=== PATIENT | female | born 1950 | race African-American/Black ===

== ENCOUNTER 2018-06-01 06:40 | Inpatient (IN) | payer OTHER, MEDICAID ==
[~2018-06-01] VITALS: Ht 152.4 cm; Wt 69.0 kg
[~2018-06-01 06:40] MED LIST: AMIT25TA9 PO; ASPI-1159 PO; FERR-63 PO; GEMF600T4 PO; HYDR25TA PO; LOSA50TA3 PO; METF500T6 PO; OMEP20CA10 PO; TRAM50TA3 PO
[2018-06-01 07:31] LABS: BASOPHILS % 0.5 % (0.0-2.0); HEMOGLOBIN. 13.8 g/dL (12.0-16.0); MEAN CORPUSCULAR HEMOGLOBIN 29.7 pg (28.0-32.0); MEAN CORPUSCULAR VOLUME 88.6 fL (81.0-99.0); MEAN PLATELET VOLUME 10.4 fl (7.4-10.4); MONOCYTES % 7.8 % (2.0-8.0); NEUTROPHILS % 45.7 % (40.0-76.0); PLATELET 213 x1000/uL (130-400); RED BLOOD CELL COUNT 4.63 mill/uL (4.2-5.4); RED CELL DISTRIBUTION WIDTH 14.4 % (11.6-14.6)
[2018-06-01 07:37] LABS: CHLORIDE 101 mEq/L (98-107)
[2018-06-01] MEDS ORDERED: FUROSEMIDE 100MG/10ML VIAL IVP NR (07:45)
[2018-06-01] MEDS ORDERED: ASPIRIN 81MG TABLET PO NR (07:45)
[2018-06-01] MEDS ORDERED: NITROGLYCERIN OINT 1GM/INCH UDPKT TD NR (07:45)
[2018-06-01] MEDS ORDERED: HYDROCODONE/ACETAMINOPHEN 5/325MG TABLET PO PRN (09:45)
[2018-06-01] MEDS ORDERED: ONDANSETRON HCL 4MG/2ML INJ IV PRN (09:45)
[2018-06-01] MEDS ORDERED: HYDROCODONE/ACETAMINOPHEN 10/325MG TABLET PO PRN (09:45)
[2018-06-01] MEDS ORDERED: ACETAMINOPHEN 650MG SUPP PR PRN (09:45)
[2018-06-01] MEDS ORDERED: ACETAMINOPHEN 650MG/20.3ML UDC GT PRN (09:45)
[2018-06-01] MEDS ORDERED: ACETAMINOPHEN 325MG TABLET PO PRN (09:45)
[2018-06-01] MEDS ORDERED: IOHEXOL-350 100 ML BOTTLE ONE (10:03)
[2018-06-01] MEDS ORDERED: POTASSIUM CHLORIDE 20MEQ TABLET SR PO NR (10:30)
[2018-06-01 11:00] VITALS: BP 129/77
[2018-06-01 11:35] LABS: PROTHROMBIN TIME 10.1 sec (9.1-11.1)
[2018-06-01 12:39] VITALS: BP 129/77
[2018-06-01] MEDS ORDERED: DEXTROSE 50% WATER 50ML SYRINGE IV PRN (13:00)
[2018-06-01] MEDS ORDERED: CLONIDINE 0.1MG TABLET PO PRN (13:15)
[2018-06-01] MEDS ORDERED: REGADENOSON 0.4 MG/5 ML IV NR (13:15)
[2018-06-01] MEDS ORDERED: CLONIDINE 0.2MG TABLET PO PRN (13:15)
[2018-06-01] MEDS: LOSARTAN POTASSIUM 50 MG TABLET PO SCH (14:24)
[2018-06-01] MEDS: OMEPRAZOLE 20MG CAPSULE EXTENDED RELEASE PO SCH (14:25)
[2018-06-01] MEDS: FERROUS SULFATE 325MG TABLET PO SCH ×2 (14:25→17:38)
[2018-06-01] MEDS: IPRATROPIUM/ALBUTEROL 0.5-3(2.5)MG/3ML NEB INH SCH ×2 (14:32→20:10)
[2018-06-01] MEDS: INSULIN LISPRO 100 UNITS/ML SUBCUT SCH ×3 (14:34→21:51)
[2018-06-01] MEDS: ENOXAPARIN 40MG/0.4ML SYR SUBCUT SCH (14:35)
[2018-06-01 14:55] LABS: CLARITY URINE CLEAR (CLEAR); COLOR URINE YELLOW (YELLOW); KETONES URINE NEGATIVE (NEGATIVE); LEUKOCYTE ESTERASE URINE NEGATIVE (NEGATIVE); NITRITE URINE NEGATIVE (NEGATIVE); OCCULT BLOOD URINE NEGATIVE (NEGATIVE); PH URINE 6.5 (4.5-8.0); PROTEIN URINE NEGATIVE (NEGATIVE); SPECIFIC GRAVITY URINE 1.023 (1.005-1.030); UROBILINOGEN URINE 0.2 E.U./dL (0.2-1.0)
[2018-06-01 15:16] LABS: *AMPHETAMINES SCREEN URINE NEGATIVE (NEGATIVE); *BARBITURATES SCREEN URINE NEGATIVE (NEGATIVE); *BENZODIAZEPINES SCREEN URINE NEGATIVE (NEGATIVE); *COCAINE SCREEN URINE NEGATIVE (NEGATIVE)
[2018-06-01 15:17] LABS: CANNABINOID URINE SCREEN NEGATIVE (NEGATIVE); METHADONE URINE SCREEN NEGATIVE (NEGATIVE); OPIATES URINE SCREEN NEGATIVE (NEGATIVE); PHENCYCLIDINE URINE SCREEN NEGATIVE (NEGATIVE)
[2018-06-01 16:14] LABS: CREATINE KINASE 52 IU/L (26-192)
[2018-06-01 16:16] LABS: CREATINE KINASE MB FRACTION 1.3 ng/mL (0.5-3.6)
[2018-06-01 16:40] VITALS: BP 133/69
[2018-06-01] MEDS ORDERED: OMEPRAZOLE 20MG CAPSULE EXTENDED RELEASE PO SCH (17:00)
[2018-06-01] MEDS: HYDROCHLOROTHIAZIDE 25MG TABLET PO SCH (17:19)
[2018-06-01] MEDS: BLOOD SUGAR DIAGNOSTIC STRIP TEST SCH ×2 (17:32→21:41)
[2018-06-01] MEDS ORDERED: FERROUS SULFATE 325MG TABLET PO SCH (17:50)
[2018-06-01 19:30] VITALS: BP 159/102
[2018-06-01] MEDS ORDERED: GABA800T97 MT (19:47)
[2018-06-01] MEDS ORDERED: PREG100C MT (19:47)
[2018-06-01] MEDS ORDERED: GLIP5TAB12 MT (19:48)
[2018-06-01] MEDS ORDERED: MELO-106 MT (19:50)
[2018-06-01] MEDS: TRAMADOL 50MG TABLET PO PRN (19:55)
[2018-06-01] MEDS: MAGNESIUM/ALUMINUM HYDROXIDE/SIMETHICONE 30ML UDC PO PRN (20:10)
[2018-06-02 00:31] VITALS: BP 125/71
[2018-06-02] MEDS: IPRATROPIUM/ALBUTEROL 0.5-3(2.5)MG/3ML NEB INH SCH ×4 (02:04→20:30)
[2018-06-02] MEDS: TRAMADOL 50MG TABLET PO PRN ×3 (02:11→17:58)
[2018-06-02] MEDS: BLOOD SUGAR DIAGNOSTIC STRIP TEST SCH ×4 (06:21→21:00)
[2018-06-02] MEDS: OMEPRAZOLE 20MG CAPSULE EXTENDED RELEASE PO SCH (06:21)
[2018-06-02 07:26] LABS: BASOPHILS % 0.3 % (0.0-2.0); EOSINOPHILS % 1.2 % (0.0-5.0); HEMATOCRIT. 41.6 % (36.0-48.0); HEMOGLOBIN. 13.6 g/dL (12.0-16.0); LYMPHOCYTES % 32.6 % (20.0-50.0); MEAN CORPUSCULAR HEMOGLOBIN 29.1 pg (28.0-32.0); MEAN CORPUSCULAR VOLUME 89.1 fL (81.0-99.0); MEAN PLATELET VOLUME 10.8 fl (7.4-10.4); MONOCYTES % 8.9 % (2.0-8.0); PLATELET 215 x1000/uL (130-400); RED BLOOD CELL COUNT 4.67 mill/uL (4.2-5.4); RED CELL DISTRIBUTION WIDTH 14.5 % (11.6-14.6)
[2018-06-02 07:50] LABS: CHLORIDE 102 mEq/L (98-107)
[2018-06-02 07:59] LABS: PHOSPHORUS 3.4 mg/dL (2.5-4.9)
[2018-06-02 08:01] LABS: LDL CHOLESTEROL 121 mg/dL (5-100)
[2018-06-02 08:02] LABS: HDL CHOLESTEROL 36 mg/dL (40-59)
[2018-06-02 08:05] LABS: CREATINE KINASE 60 IU/L (26-192); CREATINE KINASE MB FRACTION 1.1 ng/mL (0.5-3.6); T4 FREE 0.99 ng/dL (0.76-1.46)
[2018-06-02] MEDS ORDERED: REGADENOSON 0.4 MG/5 ML IV ONE (08:41)
[2018-06-02] MEDS: HYDROCHLOROTHIAZIDE 25MG TABLET PO SCH (09:00)
[2018-06-02] MEDS: ASPIRIN 81MG TABLET PO SCH (10:13)
[2018-06-02] MEDS: FERROUS SULFATE 325MG TABLET PO SCH ×3 (10:13→17:54)
[2018-06-02] MEDS: LOSARTAN POTASSIUM 50 MG TABLET PO SCH (10:14)
[2018-06-02] MEDS: ENOXAPARIN 40MG/0.4ML SYR SUBCUT SCH (10:16)
[2018-06-02] MEDS: INSULIN LISPRO 100 UNITS/ML SUBCUT SCH ×4 (10:24→21:22)
[2018-06-02 12:00] VITALS: BP 146/90
[2018-06-02] MEDS: LINAGLIPTIN 5MG TABLET PO SCH (15:12)
[2018-06-02 16:00] VITALS: BP 128/82
[2018-06-02] MEDS ORDERED: INSULIN GLARGINE UD 100 UNITS/ML SYR SUBCUT NR (16:00)
[2018-06-02] MEDS: MAGNESIUM/ALUMINUM HYDROXIDE/SIMETHICONE 30ML UDC PO PRN (16:31)
[2018-06-02] MEDS: GLIMEPIRIDE 2MG TABLET PO SCH (17:54)
[2018-06-02] MEDS: FAMOTIDINE 20MG TABLET PO SCH (21:17)
[2018-06-02] MEDS ORDERED: INSULIN GLARGINE UD 100 UNITS/ML SYR SUBCUT SCH (22:00)
[2018-06-02 23:18] VITALS: BP 136/71
[2018-06-03] MEDS: IPRATROPIUM/ALBUTEROL 0.5-3(2.5)MG/3ML NEB INH SCH ×3 (01:30→14:05)
[2018-06-03] MEDS: TRAMADOL 50MG TABLET PO PRN ×2 (05:54→12:12)
[2018-06-03] MEDS: BLOOD SUGAR DIAGNOSTIC STRIP TEST SCH ×2 (06:26→12:11)
[2018-06-03 07:43] LABS: BASOPHILS % 0.3 % (0.0-2.0); EOSINOPHILS % 2.3 % (0.0-5.0); HEMATOCRIT. 43.4 % (36.0-48.0); HEMOGLOBIN. 14.5 g/dL (12.0-16.0); LYMPHOCYTES % 36.2 % (20.0-50.0); MEAN CORPUSCULAR HEMOGLOBIN 29.5 pg (28.0-32.0); MEAN CORPUSCULAR VOLUME 88.3 fL (81.0-99.0); MEAN PLATELET VOLUME 10.3 fl (7.4-10.4); MONOCYTES % 8.2 % (2.0-8.0); PLATELET 228 x1000/uL (130-400); RED BLOOD CELL COUNT 4.91 mill/uL (4.2-5.4); RED CELL DISTRIBUTION WIDTH 14.6 % (11.6-14.6)
[2018-06-03] MEDS ORDERED: METFORMIN HCL 500MG TABLET PO SCH (07:50)
[2018-06-03] MEDS: FERROUS SULFATE 325MG TABLET PO SCH ×2 (08:52→13:31)
[2018-06-03] MEDS: LINAGLIPTIN 5MG TABLET PO SCH (08:52)
[2018-06-03] MEDS: INSULIN LISPRO 100 UNITS/ML SUBCUT SCH ×2 (08:52→13:32)
[2018-06-03] MEDS: ASPIRIN 81MG TABLET PO SCH (08:52)
[2018-06-03] MEDS: ENOXAPARIN 40MG/0.4ML SYR SUBCUT SCH (08:53)
[2018-06-03] MEDS: GLIMEPIRIDE 2MG TABLET PO SCH (08:53)
[2018-06-03] MEDS: FAMOTIDINE 20MG TABLET PO SCH (08:53)
[2018-06-03] MEDS: HYDROCHLOROTHIAZIDE 25MG TABLET PO SCH (08:56)
[2018-06-03] MEDS: LOSARTAN POTASSIUM 50 MG TABLET PO SCH (08:56)
[2018-06-03 08:57] VITALS: BP 154/80
[2018-06-03 10:21] VITALS: BP 154/80
[2018-06-03 10:24] LABS: CHLORIDE 98 mEq/L (98-107)
[2018-06-03 10:33] LABS: PHOSPHORUS 3.1 mg/dL (2.5-4.9)
[2018-06-03 12:12] VITALS: BP 154/80
[2018-06-03] MEDS ORDERED: MELO-106 PO (15:11)
[2018-06-03] MEDS ORDERED: CYCL10TA7 PO (15:11)
== END 2018-06-03 16:35 | disposition home or self-care (01) | DRG 313 ==
LOC: ER 06:53 → EDBEDREQTM 09:16 → EDBEDREQ 09:16 → ENRESERV 09:46 → 6WST 11:08
PROVIDERS: ADMIT Internal Medicine; ATTEND Internal Medicine
DX: R07.89 Other chest pain (principal); I42.9 Cardiomyopathy, unspecified; I11.0 Hypertensive heart disease with heart failure; E87.6 Hypokalemia; E78.00 Pure hypercholesterolemia, unspecified; J44.9 Chronic obstructive pulmonary disease, unspecified; D50.9 Iron deficiency anemia, unspecified; K21.9 Gastro-esophageal reflux disease without esophagitis; I50.9 Heart failure, unspecified; R79.1 Abnormal coagulation profile; R00.0 Tachycardia, unspecified; F17.210 Nicotine dependence, cigarettes, uncomplicated; E11.65 Type 2 diabetes mellitus with hyperglycemia; E78.5 Hyperlipidemia, unspecified; Z90.710 Acquired absence of both cervix and uterus; Z79.84 Long term (current) use of oral hypoglycemic drugs
CPT/HCPCS: 36415; 71045; 71275; 78452; 80048; 80053; 80061; 80305; 81003; 82550; 82553; 82962; 83036; 83690; 83735; 83880; 84100; 84439; 84443; 84481; 84484; 85025; 85379; 85610; 93005; 93017; 93306; 93970; 94640; 96374; 97162; 99291; A9500; J1650; J1815; J1940; J2405; J2785; J7620; Q9967

== ENCOUNTER 2018-10-27 20:31 | Inpatient (IN) | payer MEDICARE, MEDICAID ==
[~2018-10-27] VITALS: Ht 165.1 cm; Wt 68.2 kg
[~2018-10-27 20:31] MED LIST changes: +CYCL10TA7 PO; +GABA800T97 MT; +MELO-106 MT; +MELO-106 PO; -METF500T6 PO; +PREG100C MT
[2018-10-27] MEDS ORDERED: ASPIRIN 81MG TABLET PO ONE (20:45)
[2018-10-27 21:14] LABS: BASOPHILS % 0.3 % (0.0-2.0); EOSINOPHILS % 1.7 % (0.0-5.0); HEMATOCRIT. 42.6 % (36.0-48.0); HEMOGLOBIN. 13.9 g/dL (12.0-16.0); LYMPHOCYTES % 39.6 % (20.0-50.0); MEAN CORPUSCULAR HEMOGLOBIN 29.2 pg (28.0-32.0); MEAN CORPUSCULAR VOLUME 89.4 fL (81.0-99.0); MEAN PLATELET VOLUME 10.5 fl (7.4-10.4); MONOCYTES % 8.7 % (2.0-8.0); NEUTROPHILS % 49.7 % (40.0-76.0); PLATELET 303 x1000/uL (130-400); RED BLOOD CELL COUNT 4.77 mill/uL (4.2-5.4); RED CELL DISTRIBUTION WIDTH 14.6 % (11.6-14.6)
[2018-10-27 21:20] LABS: CHLORIDE 106 mEq/L (98-107)
[2018-10-27 21:21] LABS: BG BASE EXCESS -0.1 mmol/L (-2.0-2.0); BG BILEVEL POS AIRWAY PRESSURE 15/5; BG CARBOXYHEMOGLOBIN 1.8 % (0.5-1.5); BG DEOXYHEMOGLOBIN 0.4 % (0.0-5.0); BG FRACTION INSPIRED OXYGEN 100; BG HCO3 ACT 24.8 mmol/L (22.0-26.0); BG OXYGEN SATURATION 99.6 % (92.0-98.5); BG OXYHEMOGLOBIN 97.8 % (94.0-97.0); BG PCO2 41.7 mmHg (35.0-45.0); BG PH 7.393 (7.350-7.450); BG PO2 527.3 mmHg (75.0-100.0); BG SAMPLE SITE RIGHT BRACHIAL; BG TOTAL HEMOGLOBIN 13.7 g/dL (12.0-18.0); BG VENT MODE MASK - BIPAP
[2018-10-27] MEDS ORDERED: NITROGLYCERIN 0.4MG TABLET SL SL ONE (22:45)
[2018-10-27] MEDS ORDERED: FUROSEMIDE 40MG/4ML VIAL IVP ONE (22:45)
[2018-10-27] MEDS ORDERED: HYDROCODONE/ACETAMINOPHEN 5/325MG TABLET PO ONE (23:15)
[2018-10-27] MEDS ORDERED: POTASSIUM CHLORIDE 20MEQ TABLET SR PO NR (23:31)
[2018-10-27] MEDS ORDERED: NA PHOS,M-B/NA PHOS,DI-BA ENEMA 118ML PR PRN (23:45)
[2018-10-27] MEDS ORDERED: DEXTROSE 50% WATER 50ML SYRINGE IV PRN (23:45)
[2018-10-27] MEDS ORDERED: ACETAMINOPHEN 325MG TABLET PO PRN (23:45)
[2018-10-27] MEDS ORDERED: MAGNESIUM/ALUMINUM HYDROXIDE/SIMETHICONE 30ML UDC PO PRN (23:45)
[2018-10-27] MEDS ORDERED: LEVOFLOXACIN 500MG PREMIX 100 ML IV SCH (23:45)
[2018-10-27] MEDS ORDERED: CLONIDINE 0.1MG TABLET PO PRN (23:45)
[2018-10-27] MEDS ORDERED: HYDROCODONE/ACETAMINOPHEN 10/325MG TABLET PO PRN (23:45)
[2018-10-27] MEDS ORDERED: ONDANSETRON HCL 4MG/2ML INJ IV PRN (23:45)
[2018-10-27] MEDS ORDERED: IPRATROPIUM/ALBUTEROL 0.5-3(2.5)MG/3ML NEB INH PRN (23:45)
[2018-10-27] MEDS ORDERED: LORAZEPAM 2MG/ML CPJ IV PRN (23:45)
[2018-10-28] MEDS ORDERED: NITROGLYCERIN 0.4MG TABLET SL SL ONE
[2018-10-28] MEDS ORDERED: ACETAMINOPHEN WITH CODEINE 300/30MG TABLET PO ONE
[2018-10-28 04:00] VITALS: BP 133/88
[2018-10-28] MEDS ORDERED: LEVOFLOXACIN 500MG PREMIX 100 ML IV NR (04:15)
[2018-10-28] MEDS ORDERED: INFLUENZA VIRUS VACCINE(AFLURIA) 0.5ML SYR IM ONE ×2 (05:15→09:00)
[2018-10-28] MEDS: SODIUM CHLORIDE 0.9% INJ 3ML FLUSH IVF SCH ×3 (06:16→20:52)
[2018-10-28] MEDS: BLOOD SUGAR DIAGNOSTIC STRIP TEST SCH ×4 (06:18→20:45)
[2018-10-28] MEDS: INSULIN LISPRO 100 UNITS/ML SUBCUT SCH ×4 (06:18→20:52)
[2018-10-28 07:50] LABS: BASOPHILS % 0.3 % (0.0-2.0); EOSINOPHILS % 0.6 % (0.0-5.0); HEMOGLOBIN. 13.4 g/dL (12.0-16.0); LYMPHOCYTES % 25.6 % (20.0-50.0); MEAN CORPUSCULAR HEMOGLOBIN 29.5 pg (28.0-32.0); MEAN CORPUSCULAR VOLUME 88.3 fL (81.0-99.0); MEAN PLATELET VOLUME 9.8 fl (7.4-10.4); MONOCYTES % 6.1 % (2.0-8.0); NEUTROPHILS % 67.4 % (40.0-76.0); PLATELET 235 x1000/uL (130-400); RED BLOOD CELL COUNT 4.53 mill/uL (4.2-5.4); RED CELL DISTRIBUTION WIDTH 14.8 % (11.6-14.6)
[2018-10-28 07:57] LABS: CHLORIDE 106 mEq/L (98-107)
[2018-10-28 08:00] VITALS: BP 124/76
[2018-10-28 08:07] LABS: LDL CHOLESTEROL 69 mg/dL (5-100)
[2018-10-28 08:08] LABS: HDL CHOLESTEROL 38 mg/dL (40-59)
[2018-10-28 08:09] LABS: T4 FREE 1.02 ng/dL (0.76-1.46)
[2018-10-28] MEDS: ASPIRIN 81MG EC TABLET PO SCH (09:47)
[2018-10-28] MEDS: FUROSEMIDE 40MG/4ML VIAL IV SCH (09:47)
[2018-10-28] MEDS: ENOXAPARIN 40MG/0.4ML SYR SUBCUT SCH (10:01)
[2018-10-28] MEDS: LEVOFLOXACIN 500MG PREMIX 100 ML IV SCH (10:14)
[2018-10-28 12:00] VITALS: BP 140/84
[2018-10-28] MEDS: TRAMADOL 50MG TABLET PO PRN ×2 (12:40→19:14)
[2018-10-28 16:00] VITALS: BP 127/80
[2018-10-28 17:21] LABS: *COCAINE SCREEN URINE NEGATIVE (NEGATIVE); METHADONE URINE SCREEN NEGATIVE (NEGATIVE); OPIATES URINE SCREEN PRESUMTIVE POSITIVE (NEGATIVE)
[2018-10-28 17:22] LABS: *AMPHETAMINES SCREEN URINE NEGATIVE (NEGATIVE); *BARBITURATES SCREEN URINE NEGATIVE (NEGATIVE); *BENZODIAZEPINES SCREEN URINE NEGATIVE (NEGATIVE); CANNABINOID URINE SCREEN NEGATIVE (NEGATIVE); PHENCYCLIDINE URINE SCREEN NEGATIVE (NEGATIVE)
[2018-10-28 19:47] LABS: CREATINE KINASE MB FRACTION 1.9 ng/mL (0.5-3.6)
[2018-10-28 20:00] VITALS: BP 138/71
[2018-10-28] MEDS: GUAIFENESIN 200MG/10ML SUGAR FREE UDC PO PRN (20:45)
[2018-10-28] MEDS: DIPHENHYDRAMINE 50MG/ML VIAL IV PRN (20:45)
[2018-10-29] VITALS: BP 126/84
[2018-10-29] MEDS: TRAMADOL 50MG TABLET PO PRN (01:16)
[2018-10-29] MEDS: GUAIFENESIN 200MG/10ML SUGAR FREE UDC PO PRN (02:52)
[2018-10-29] MEDS: DIPHENHYDRAMINE 50MG/ML VIAL IV PRN (02:52)
[2018-10-29 04:00] VITALS: BP 126/70
[2018-10-29] MEDS: SODIUM CHLORIDE 0.9% INJ 3ML FLUSH IVF SCH ×3 (05:11→21:07)
[2018-10-29] MEDS: HYDROMORPHONE HCL/PF 2MG/ML CPJ IV PRN ×3 (05:11→21:07)
[2018-10-29] MEDS: INSULIN LISPRO 100 UNITS/ML SUBCUT SCH ×4 (06:31→21:11)
[2018-10-29] MEDS: BLOOD SUGAR DIAGNOSTIC STRIP TEST SCH ×4 (06:31→21:07)
[2018-10-29 07:20] LABS: BASOPHILS % 0.5 % (0.0-2.0); EOSINOPHILS % 1.6 % (0.0-5.0); HEMATOCRIT. 41.5 % (36.0-48.0); HEMOGLOBIN. 13.9 g/dL (12.0-16.0); LYMPHOCYTES % 40.3 % (20.0-50.0); MEAN CORPUSCULAR HEMOGLOBIN 29.3 pg (28.0-32.0); MEAN CORPUSCULAR VOLUME 87.7 fL (81.0-99.0); MEAN PLATELET VOLUME 10.4 fl (7.4-10.4); NEUTROPHILS % 46.6 % (40.0-76.0); PLATELET 244 x1000/uL (130-400); RED BLOOD CELL COUNT 4.74 mill/uL (4.2-5.4); RED CELL DISTRIBUTION WIDTH 14.4 % (11.6-14.6)
[2018-10-29 08:00] VITALS: BP 120/77
[2018-10-29 08:33] LABS: CHLORIDE 101 mEq/L (98-107)
[2018-10-29] MEDS: LEVOFLOXACIN 500MG PREMIX 100 ML IV SCH (09:27)
[2018-10-29] MEDS: FUROSEMIDE 40MG/4ML VIAL IV SCH (09:27)
[2018-10-29] MEDS: ASPIRIN 81MG EC TABLET PO SCH (09:28)
[2018-10-29] MEDS: ENOXAPARIN 40MG/0.4ML SYR SUBCUT SCH (09:28)
[2018-10-29] MEDS: LOSARTAN POTASSIUM 50 MG TABLET PO SCH (09:28)
[2018-10-29] MEDS: DOCUSATE SODIUM 100MG CAPSULE PO PRN (09:39)
[2018-10-29 12:00] VITALS: BP 98/68
[2018-10-29 16:00] VITALS: BP 99/74
[2018-10-29 20:00] VITALS: BP 101/58
[2018-10-30] VITALS: BP 117/68
[2018-10-30] MEDS: HYDROMORPHONE HCL/PF 2MG/ML CPJ IV PRN ×2 (02:53→09:40)
[2018-10-30 04:00] VITALS: BP 117/72
[2018-10-30] MEDS: SODIUM CHLORIDE 0.9% INJ 3ML FLUSH IVF SCH (06:31)
[2018-10-30] MEDS: INSULIN LISPRO 100 UNITS/ML SUBCUT SCH ×2 (06:31→12:44)
[2018-10-30] MEDS: BLOOD SUGAR DIAGNOSTIC STRIP TEST SCH ×2 (06:31→12:30)
[2018-10-30 08:00] VITALS: BP 118/81
[2018-10-30] MEDS: DOCUSATE SODIUM 100MG CAPSULE PO PRN (09:37)
[2018-10-30] MEDS: FUROSEMIDE 40MG/4ML VIAL IV SCH (09:37)
[2018-10-30] MEDS: ASPIRIN 81MG EC TABLET PO SCH (09:38)
[2018-10-30] MEDS: ENOXAPARIN 40MG/0.4ML SYR SUBCUT SCH (09:38)
[2018-10-30] MEDS: LOSARTAN POTASSIUM 50 MG TABLET PO SCH (09:38)
[2018-10-30] MEDS: GUAIFENESIN 200MG/10ML SUGAR FREE UDC PO PRN (10:05)
[2018-10-30] MEDS ORDERED: LEVOFLOXACIN 500MG TABLET PO SCH (11:00)
[2018-10-30 12:26] VITALS: BP 118/70
[2018-10-30 13:37] VITALS: BP 118/70
== END 2018-10-30 14:21 | disposition home health service (06) | DRG 291 ==
LOC: ER 20:31 → 5WST 23:11 → EDBEDREQ 23:15 → EDBEDREQTM 23:15 → ENRESERV 10-28 00:44
PROVIDERS: ADMIT Internal Medicine; ATTEND Internal Medicine
PROC: 5A09357 Assistance with Respiratory Ventilation, Less than 24 Consecutive Hours, Continuous Positive Airway Pressure (ICD-10-PCS; principal; 2018-10-27)
DX: I11.0 Hypertensive heart disease with heart failure (principal); J96.00 Acute respiratory failure, unspecified whether with hypoxia or hypercapnia; I50.23 Acute on chronic systolic (congestive) heart failure; I42.9 Cardiomyopathy, unspecified; J44.9 Chronic obstructive pulmonary disease, unspecified; E11.40 Type 2 diabetes mellitus with diabetic neuropathy, unspecified; I34.0 Nonrheumatic mitral (valve) insufficiency; E78.00 Pure hypercholesterolemia, unspecified; I25.10 Atherosclerotic heart disease of native coronary artery without angina pectoris; Z79.82 Long term (current) use of aspirin; Z79.899 Other long term (current) drug therapy; Z82.49 Family history of ischemic heart disease and other diseases of the circulatory system; Z83.3 Family history of diabetes mellitus; Z72.0 Tobacco use; Z71.6 Tobacco abuse counseling
CPT/HCPCS: 36415; 36600; 71045; 80048; 80061; 80305; 82375; 82550; 82553; 82805; 82962; 83735; 83880; 84439; 84443; 84484; 90686; 93005; 93306; 94660; 96374; 99291; C1893; J1170; J1200; J1650; J1815; J1940; J1956; J7050

== ENCOUNTER 2019-07-11 14:34 | Emergency (ER) | payer MEDICARE, OTHER ==
[~2019-07-11] VITALS: Ht 152.4 cm; Wt 73.0 kg
[~2019-07-11 14:34] MED LIST changes: -ASPI-1159 PO; +ASPI-1393 PO; -GABA800T97 MT; -GEMF600T4 PO; -HYDR25TA PO; -MELO-106 MT; -MELO-106 PO; -OMEP20CA10 PO; +OMEP20CA5 PO
[2019-07-11] MEDS ORDERED: MORPHINE SULFATE 4 MG/ML CPJ (NOT FOR IM USE) IV STA (14:54)
[2019-07-11] MEDS ORDERED: KETOROLAC 30MG/ML VIAL IV STA (14:54)
[2019-07-11] MEDS ORDERED: ONDANSETRON HCL 4MG/2ML INJ IV STA (14:54)
[2019-07-11 17:49] VITALS: BP 120/73
== END 2019-07-11 17:49 | disposition home or self-care (01) ==
LOC: ER 14:34
DX: M54.2 Cervicalgia (principal); E11.9 Type 2 diabetes mellitus without complications; I11.0 Hypertensive heart disease with heart failure; I50.9 Heart failure, unspecified; J44.9 Chronic obstructive pulmonary disease, unspecified; Z79.82 Long term (current) use of aspirin
CPT/HCPCS: 96374; 96375; 99283; J1885; J2270; J2405

== ENCOUNTER 2019-07-27 00:07 | Inpatient (IN) | payer MEDICARE, OTHER ==
[~2019-07-27] VITALS: Ht 152.4 cm; Wt 65.0 kg
[2019-07-27] VITALS (10 sets, daily range): BP systolic 100–159; BP diastolic 63–90
[2019-07-27] MEDS ORDERED: IPRATROPIUM BROMIDE (0.02%) 0.5MG/2.5ML NEB HHN STA (00:09)
[2019-07-27] MEDS ORDERED: METHYLPREDNISOLONE SOD SUCC 125 MG/2 ML VIAL IV STA (00:09)
[2019-07-27] MEDS ORDERED: MAGNESIUM 2 G PREMIX 50 ML IV STA (00:09)
[2019-07-27] MEDS ORDERED: ALBUTEROL (0.083%) 2.5MG/3ML NEB HHN STA (00:09)
[2019-07-27 00:39] LABS: BASOPHILS % 0.6 % (0.0-2.0); EOSINOPHILS % 1.4 % (0.0-5.0); HEMATOCRIT. 40.6 % (36.0-48.0); HEMOGLOBIN. 13.5 g/dL (12.0-16.0); LYMPHOCYTES % 35.7 % (20.0-50.0); MEAN CORPUSCULAR HEMOGLOBIN 29.3 pg (28.0-32.0); MEAN CORPUSCULAR VOLUME 88.3 fL (81.0-99.0); MEAN PLATELET VOLUME 10.1 fl (7.4-10.4); MONOCYTES % 8.1 % (2.0-8.0); NEUTROPHILS % 54.2 % (40.0-76.0); PLATELET 302 x1000/uL (130-400); PROTHROMBIN TIME 10.1 sec (9.6-11.0); RED BLOOD CELL COUNT 4.59 mill/uL (4.2-5.4); RED CELL DISTRIBUTION WIDTH 16.6 % (11.6-14.6)
[2019-07-27 01:21] LABS: CHLORIDE 104 mEq/L (98-107)
[2019-07-27 01:24] LABS: ETHANOL BLOOD < 10 mg/dL
[2019-07-27] MEDS ORDERED: FUROSEMIDE 40MG/4ML VIAL IVP SCH (01:30)
[2019-07-27] MEDS ORDERED: KETOROLAC 15MG/ML VIAL IV ONE (01:45)
[2019-07-27 03:46] LABS: CANNABINOID URINE SCREEN NEGATIVE (NEGATIVE); METHADONE URINE SCREEN NEGATIVE (NEGATIVE); OPIATES URINE SCREEN PRESUMTIVE POSITIVE (NEGATIVE); PHENCYCLIDINE URINE SCREEN NEGATIVE (NEGATIVE)
[2019-07-27 03:47] LABS: *AMPHETAMINES SCREEN URINE NEGATIVE (NEGATIVE); *BARBITURATES SCREEN URINE NEGATIVE (NEGATIVE); *BENZODIAZEPINES SCREEN URINE NEGATIVE (NEGATIVE); *COCAINE SCREEN URINE NEGATIVE (NEGATIVE)
[2019-07-27 03:49] LABS: CLARITY URINE CLEAR (CLEAR); COLOR URINE YELLOW (YELLOW); KETONES URINE NEGATIVE (NEGATIVE); LEUKOCYTE ESTERASE URINE NEGATIVE (NEGATIVE); NITRITE URINE NEGATIVE (NEGATIVE); OCCULT BLOOD URINE NEGATIVE (NEGATIVE); PH URINE 5.5 (4.5-8.0); PROTEIN URINE NEGATIVE (NEGATIVE); SPECIFIC GRAVITY URINE 1.007 (1.005-1.030); UROBILINOGEN URINE 0.2 E.U./dL (0.2-1.0)
[2019-07-27] MEDS ORDERED: INSULIN LISPRO 100 UNITS/ML SUBCUT SCH (06:50)
[2019-07-27] MEDS ORDERED: DEXTROSE 50% WATER 50ML SYRINGE IV PRN ×2 (07:30)
[2019-07-27 07:33] LABS: BG BILEVEL POS AIRWAY PRESSURE 15/5; BG CARBOXYHEMOGLOBIN 0.5 % (0.5-1.5); BG DEOXYHEMOGLOBIN 0.2 % (0.0-5.0); BG FRACTION INSPIRED OXYGEN 100; BG HCO3 ACT 25.5 mmol/L (22.0-26.0); BG METHEMOGLOBIN 0.3 % (0.0-1.5); BG OXYGEN SATURATION 99.8 % (92.0-98.5); BG PH 7.422 (7.350-7.450); BG PO2 572.4 mmHg (75.0-100.0); BG SAMPLE SITE RIGHT BRACHIAL; BG TOTAL HEMOGLOBIN 13.8 g/dL (12.0-18.0); BG VENT MODE MASK - BIPAP; BG VENT RATE 16 set
[2019-07-27] MEDS: IPRATROPIUM/ALBUTEROL 0.5-3(2.5)MG/3ML NEB HHN SCH ×4 (07:50→20:59)
[2019-07-27] MEDS ORDERED: PANTOPRAZOLE 40MG DR TABLET PO ONE (09:00)
[2019-07-27] MEDS: POTASSIUM CHLORIDE 20MEQ TABLET SR PO SCH ×2 (09:14→18:46)
[2019-07-27] MEDS: LOSARTAN POTASSIUM 50 MG TABLET PO SCH ×2 (09:14→21:00)
[2019-07-27] MEDS: ENOXAPARIN 40MG/0.4ML SYR SUBCUT SCH (09:15)
[2019-07-27] MEDS: INSULIN LISPRO 100 UNITS/ML SUBCUT SCH ×4 (09:23→21:00)
[2019-07-27] MEDS ORDERED: INFLUENZA VIRUS VACCINE(AFLURIA) 0.5ML SYR IM ONE (10:00)
[2019-07-27] MEDS: BLOOD SUGAR DIAGNOSTIC STRIP TEST SCH ×3 (12:08→21:18)
[2019-07-27] MEDS: HYDROCODONE/ACETAMINOPHEN 5/325MG TABLET PO PRN ×2 (14:00→21:28)
[2019-07-27] MEDS ORDERED: METHYLPREDNISOLONE SOD SUCC 40 MG/ML VIAL IV SCH (15:00)
[2019-07-27 16:21] LABS: CREATINE KINASE MB FRACTION 2.1 ng/mL (0.5-3.6)
[2019-07-27] MEDS: TRAMADOL 50MG TABLET PO PRN (17:17)
[2019-07-27] MEDS: FUROSEMIDE 40MG/4ML VIAL IVP SCH (18:46)
[2019-07-28] VITALS (10 sets, daily range): BP systolic 100–124; BP diastolic 53–82
[2019-07-28 00:35] LABS: CREATINE KINASE 64 IU/L (26-192)
[2019-07-28 00:36] LABS: CREATINE KINASE MB FRACTION 1.7 ng/mL (0.5-3.6)
[2019-07-28] MEDS: IPRATROPIUM/ALBUTEROL 0.5-3(2.5)MG/3ML NEB HHN SCH ×5 (01:27→16:01)
[2019-07-28] MEDS: TRAMADOL 50MG TABLET PO PRN ×2 (02:24→14:04)
[2019-07-28] MEDS: BLOOD SUGAR DIAGNOSTIC STRIP TEST SCH ×3 (05:35→17:38)
[2019-07-28] MEDS: METHYLPREDNISOLONE SOD SUCC 40 MG/ML VIAL IV SCH ×2 (05:35→17:39)
[2019-07-28] MEDS: HYDROCODONE/ACETAMINOPHEN 5/325MG TABLET PO PRN ×2 (05:35→10:55)
[2019-07-28 08:01] LABS: HEMATOCRIT. 36.3 % (36.0-48.0); HEMOGLOBIN. 12.2 g/dL (12.0-16.0); MEAN CORPUSCULAR HEMOGLOBIN 29.3 pg (28.0-32.0); MEAN CORPUSCULAR VOLUME 87.2 fL (81.0-99.0); MEAN PLATELET VOLUME 10.6 fl (7.4-10.4); PLATELET 214 x1000/uL (130-400); RED BLOOD CELL COUNT 4.16 mill/uL (4.2-5.4); RED CELL DISTRIBUTION WIDTH 16.3 % (11.6-14.6)
[2019-07-28 08:14] LABS: CREATINE KINASE 66 IU/L (26-192)
[2019-07-28 08:15] LABS: CREATINE KINASE MB FRACTION 1.8 ng/mL (0.5-3.6)
[2019-07-28 08:21] LABS: CHLORIDE 102 mEq/L (98-107)
[2019-07-28] MEDS: LOSARTAN POTASSIUM 50 MG TABLET PO SCH (08:51)
[2019-07-28] MEDS: ENOXAPARIN 40MG/0.4ML SYR SUBCUT SCH (08:51)
[2019-07-28] MEDS: FUROSEMIDE 40MG/4ML VIAL IVP SCH ×2 (08:51→17:00)
[2019-07-28] MEDS: POTASSIUM CHLORIDE 20MEQ TABLET SR PO SCH ×2 (08:51→17:42)
[2019-07-28] MEDS: INSULIN LISPRO 100 UNITS/ML SUBCUT SCH ×3 (08:52→17:42)
[2019-07-28 09:44] LABS: LYMPHOCYTES % 12.8 % (20.0-50.0); NEUTROPHILS % 82.6 % (40.0-76.0)
[2019-07-28 09:45] LABS: MONOCYTES % 4.6 % (2.0-8.0)
[2019-07-28 13:26] LABS: BG BASE EXCESS 3.9 mmol/L (-2.0-2.0); BG CARBOXYHEMOGLOBIN 0.9 % (0.5-1.5); BG DEOXYHEMOGLOBIN 1.9 % (0.0-5.0); BG FRACTION INSPIRED OXYGEN 21; BG HCO3 ACT 26.9 mmol/L (22.0-26.0); BG METHEMOGLOBIN 0.2 % (0.0-1.5); BG OXYGEN SATURATION 98.1 % (92.0-98.5); BG PCO2 35.5 mmHg (35.0-45.0); BG PH 7.498 (7.350-7.450); BG PO2 101.8 mmHg (75.0-100.0); BG SAMPLE SITE RIGHT RADIAL; BG TOTAL HEMOGLOBIN 13.7 g/dL (12.0-18.0); BG VENT MODE ROOM AIR
== END 2019-07-28 19:10 | disposition home or self-care (01) | DRG 291 ==
LOC: ER 00:07 → 3WST 03:07 → EDBEDREQTM 03:19 → EDBEDREQ 03:19 → ENRESERV 03:32
PROVIDERS: ADMIT Internal Medicine; ATTEND Internal Medicine
PROC: 5A09357 Assistance with Respiratory Ventilation, Less than 24 Consecutive Hours, Continuous Positive Airway Pressure (ICD-10-PCS; principal; 2019-07-27)
DX: I11.0 Hypertensive heart disease with heart failure (principal); J96.00 Acute respiratory failure, unspecified whether with hypoxia or hypercapnia; J44.1 Chronic obstructive pulmonary disease with (acute) exacerbation; I50.23 Acute on chronic systolic (congestive) heart failure; I42.9 Cardiomyopathy, unspecified; E11.65 Type 2 diabetes mellitus with hyperglycemia; G89.4 Chronic pain syndrome; I34.0 Nonrheumatic mitral (valve) insufficiency; Z79.82 Long term (current) use of aspirin; Z79.899 Other long term (current) drug therapy
CPT/HCPCS: 36415; 36600; 71045; 80048; 80305; 80320; 81003; 82375; 82550; 82553; 82805; 82947; 82962; 83605; 83880; 84145; 84484; 87077; 87186; 90686; 93005; 94003; 94640; 94644; 94660; 96365; 96375; 99291; J1650; J1815; J1885; J1940; J2920; J2930; J3475; J7611; J7620; G0480

== ENCOUNTER 2021-07-19 11:41 | Inpatient (IN) | payer OTHER, MEDICAID ==
[~2021-07-19] VITALS: Ht 157.5 cm; Wt 64.0 kg
[2021-07-19] VITALS (23 sets, daily range): BP systolic 89–159; BP diastolic 46–125
[~2021-07-19 11:41] MED LIST changes: -ASPI-1393 PO; +ASPI-1497 PO; +OMEP20CA14 PO; -OMEP20CA5 PO
[2021-07-19] MEDS ORDERED: METOCLOPRAMIDE HCL 10MG/2ML VIAL IV STA (12:02)
[2021-07-19] MEDS ORDERED: FAMOTIDINE 20MG/2ML VIAL IV STA (12:02)
[2021-07-19] MEDS ORDERED: SODIUM CHLORIDE 0.9% 1,000 ML IV ONE ×2 (12:15→16:45)
[2021-07-19] MEDS ORDERED: KETOROLAC 30MG/ML VIAL IV ONE (12:15)
[2021-07-19 12:45] LABS: BASOPHILS % 0.3 % (0.0-2.0); EOSINOPHILS % 0.2 % (0.0-5.0); HEMATOCRIT. 34.6 % (36.0-48.0); HEMOGLOBIN. 11.2 g/dL (12.0-16.0); LYMPHOCYTES % 17.3 % (20.0-50.0); MEAN CORPUSCULAR HEMOGLOBIN 27.4 pg (28.0-32.0); MEAN CORPUSCULAR VOLUME 84.5 fL (81.0-99.0); MEAN PLATELET VOLUME 8.4 fl (7.4-10.4); MONOCYTES % 3.7 % (2.0-8.0); NEUTROPHILS % 78.5 % (40.0-76.0); PLATELET 510 x1000/uL (130-400); RED BLOOD CELL COUNT 4.09 mill/uL (4.2-5.4)
[2021-07-19 12:51] LABS: CHLORIDE 98 mEq/L (98-107)
[2021-07-19] MEDS ORDERED: MORPHINE SULFATE 4 MG/ML CPJ (NOT FOR IM USE) IV NR (14:30)
[2021-07-19] MEDS ORDERED: CEFTRIAXONE 1 G PREMIX 50 ML IV NR (17:00)
[2021-07-19] MEDS ORDERED: METRONIDAZOLE 500 MG PREMIX 100 ML IV NR (17:00)
[2021-07-19 17:01] LABS: INR 1.2; PARTIAL THROMBOPLASTIN TIME 25.4 sec (23.4-31.0); PROTHROMBIN TIME 12.3 sec (9.6-11.0)
[2021-07-19] MEDS ORDERED: KCL 20MEQ/100ML PREMIX 100 ML IV NR (18:00)
[2021-07-19] MEDS ORDERED: NEOSTIGMINE METHYLSULFATE 1MG/ML 10 ML VIAL ONE (18:17)
[2021-07-19] MEDS ORDERED: ROCURONIUM BROMIDE 10MG/ML VIAL 5ML IV ONE ×2 (18:17→18:22)
[2021-07-19] MEDS ORDERED: FENTANYL CITRATE/PF 50MCG/ML 2ML VIAL ONE (18:17)
[2021-07-19] MEDS ORDERED: SODIUM CHLORIDE 0.9% 10ML VIAL ONE (18:18)
[2021-07-19] MEDS ORDERED: CEFAZOLIN SODIUM 1000MG/VIAL ONE (18:18)
[2021-07-19] MEDS ORDERED: SUCCINYLCHOLINE CHLORIDE 200MG/10ML IV ONE (18:18)
[2021-07-19] MEDS ORDERED: MIDAZOLAM HCL 2 MG/2 ML VIAL ONE ×3 (18:18→19:16)
[2021-07-19] MEDS ORDERED: PROPOFOL 200MG/20ML VIAL IV ONE (18:18)
[2021-07-19] MEDS ORDERED: PHENYLEPHRINE HCL 10 MG/ML 1ML (IV VIAL) IV ONE (18:18)
[2021-07-19] MEDS ORDERED: GLYCOPYRROLATE 0.2 MG/ML 2ML VIAL ONE (18:18)
[2021-07-19] MEDS ORDERED: ETOMIDATE 2MG/ML 10ML VIAL IV ONE (18:21)
[2021-07-19] MEDS ORDERED: BUPIVACAINE HCL/PF 0.5% (5MG/ML) 10ML ONE (18:44)
[2021-07-19] MEDS ORDERED: METRONIDAZOLE 500 MG PREMIX 100 ML IV ONE (18:46)
[2021-07-19] MEDS ORDERED: IOHEXOL-350 100 ML BOTTLE ONE (19:12)
[2021-07-19] MEDS ORDERED: ALBUMIN HUMAN 12.5G/250ML (5%) IV ONE (19:13)
[2021-07-19] MEDS ORDERED: EPINEPHRINE 0.1MG/ML (1:10,000) 10ML SYR ONE (19:13)
[2021-07-19] MEDS ORDERED: SODIUM BICARBONATE 8.4% 1 MEQ/ML 50ML SYR IV ONE (19:13)
[2021-07-19] MEDS ORDERED: PIPERACILLIN/TAZOBACTAM 3.375GM/50ML PREMIX IV SCH (20:30)
[2021-07-19 20:50] LABS: BG BASE EXCESS -0.9 mmol/L (-2.0-2.0); BG CARBOXYHEMOGLOBIN 0.8 % (0.5-1.5); BG DEOXYHEMOGLOBIN 1.6 % (0.0-5.0); BG FRACTION INSPIRED OXYGEN 40; BG HCO3 ACT 22.5 mmol/L (22.0-26.0); BG METHEMOGLOBIN 0.3 % (0.0-1.5); BG OXYGEN SATURATION 98.4 % (92.0-98.5); BG OXYHEMOGLOBIN 97.3 % (94.0-97.0); BG PH 7.452 (7.350-7.450); BG PO2 122.8 mmHg (75.0-100.0); BG SAMPLE SITE ALINE; BG TOTAL HEMOGLOBIN 10.7 g/dL (12.0-18.0); BG VENT MODE VENT - AC
[2021-07-19] MEDS ORDERED: PHENYLEPHRINE 100 MG in DEXT 5% WATER 240 ML IV PRN (21:45)
[2021-07-19] MEDS: DEXT 5%/0.45% NACL KCL 20MEQ/L 1,000 ML IV SCH (23:29)
[2021-07-19] MEDS: PIPERACILLIN/TAZOBACTAM 3.375G in DEXT 5% WATER 50ML IV SCH (23:30)
[2021-07-19 23:42] LABS: CHLORIDE 106 mEq/L (98-107)
[2021-07-19] MEDS ORDERED: DEXTROSE 50% WATER 50ML SYRINGE IV PRN (23:45)
[2021-07-20] VITALS (87 sets, daily range): BP systolic 72–135; BP diastolic 15–86
[2021-07-20] MEDS: BLOOD SUGAR DIAGNOSTIC STRIP TEST SCH ×5 (00:27→23:36)
[2021-07-20] MEDS: INSULIN LISPRO 100 UNITS/ML SUBCUT SCH ×5 (00:27→23:37)
[2021-07-20 05:56] LABS: HEMATOCRIT. 31.5 % (36.0-48.0); HEMOGLOBIN. 10.1 g/dL (12.0-16.0); MEAN CORPUSCULAR HEMOGLOBIN 27.6 pg (28.0-32.0); MEAN CORPUSCULAR VOLUME 86.2 fL (81.0-99.0); MEAN PLATELET VOLUME 8.8 fl (7.4-10.4); PLATELET 415 x1000/uL (130-400); RED BLOOD CELL COUNT 3.66 mill/uL (4.2-5.4); RED CELL DISTRIBUTION WIDTH 17.5 % (11.6-14.6)
[2021-07-20] MEDS: PIPERACILLIN/TAZOBACTAM 3.375G in DEXT 5% WATER 50ML IV SCH ×3 (06:05→22:33)
[2021-07-20] MEDS: MORPHINE SULFATE 2 MG/ML CPJ (NOT FOR IM USE) IV PRN ×5 (06:34→23:48)
[2021-07-20 06:41] LABS: CLARITY URINE CLEAR (CLEAR); COLOR URINE YELLOW (YELLOW); KETONES URINE NEGATIVE (NEGATIVE); LEUKOCYTE ESTERASE URINE NEGATIVE (NEGATIVE); NITRITE URINE POSITIVE (NEGATIVE); OCCULT BLOOD URINE NEGATIVE (NEGATIVE); PH URINE 5.5 (4.5-8.0); PROTEIN URINE 1+ (NEGATIVE); SPECIFIC GRAVITY URINE 1.066 (1.005-1.030)
[2021-07-20] MEDS: PANTOPRAZOLE SODIUM 40 MG/VIAL IV SCH (08:19)
[2021-07-20] MEDS: DEXT 5%/0.45% NACL KCL 20MEQ/L 1,000 ML IV SCH ×2 (08:20→14:22)
[2021-07-20 10:05] LABS: BG BASE EXCESS 1.8 mmol/L (-2.0-2.0); BG CARBOXYHEMOGLOBIN 0.3 % (0.5-1.5); BG DEOXYHEMOGLOBIN 1.8 % (0.0-5.0); BG FRACTION INSPIRED OXYGEN 40; BG HCO3 ACT 24.5 mmol/L (22.0-26.0); BG METHEMOGLOBIN 0.3 % (0.0-1.5); BG OXYGEN SATURATION 98.2 % (92.0-98.5); BG OXYHEMOGLOBIN 97.6 % (94.0-97.0); BG PCO2 31.4 mmHg (35.0-45.0); BG PO2 110.7 mmHg (75.0-100.0); BG SAMPLE SITE RIGHT RADIAL; BG TOTAL HEMOGLOBIN 10.2 g/dL (12.0-18.0); BG VENT MODE VENT - AC
[2021-07-20] MEDS ORDERED: NALOXONE HCL 0.4MG/ML VIAL IV PRN (10:45)
[2021-07-20] MEDS ORDERED: BISACODYL 10MG SUPP PR PRN (12:30)
[2021-07-20] MEDS ORDERED: HYDRALAZINE 20MG/ML VIAL IV PRN (12:30)
[2021-07-20] MEDS ORDERED: ACETAMINOPHEN 650MG SUPP PR PRN (12:30)
[2021-07-20] MEDS ORDERED: IPRATROPIUM/ALBUTEROL 0.5-3(2.5)MG/3ML NEB HHN PRN (12:30)
[2021-07-20 12:31] LABS: PLATELET ESTIMATE INCREASED
[2021-07-20] MEDS: KCL 20MEQ/100ML PREMIX 100 ML IV SCH ×2 (13:11→15:39)
[2021-07-20] MEDS ORDERED: LIDOCAINE HCL 1% 10 MG/ML 10ML VIAL ONE (13:17)
[2021-07-20 14:04] LABS: BG BASE EXCESS 2.3 mmol/L (-2.0-2.0); BG CARBOXYHEMOGLOBIN 0.3 % (0.5-1.5); BG DEOXYHEMOGLOBIN 2.6 % (0.0-5.0); BG FRACTION INSPIRED OXYGEN 35; BG HCO3 ACT 24.9 mmol/L (22.0-26.0); BG METHEMOGLOBIN 0.2 % (0.0-1.5); BG OXYGEN SATURATION 97.4 % (92.0-98.5); BG OXYHEMOGLOBIN 96.9 % (94.0-97.0); BG PCO2 31.6 mmHg (35.0-45.0); BG PH 7.515 (7.350-7.450); BG PO2 97.3 mmHg (75.0-100.0); BG SAMPLE SITE LEFT RADIAL; BG TOTAL HEMOGLOBIN 9.9 g/dL (12.0-18.0); BG VENT MODE VENT - CPAP
[2021-07-20 17:09] LABS: BG BASE EXCESS -1.2 mmol/L (-2.0-2.0); BG CARBOXYHEMOGLOBIN 0.3 % (0.5-1.5); BG DEOXYHEMOGLOBIN 1.2 % (0.0-5.0); BG FRACTION INSPIRED OXYGEN 40; BG HCO3 ACT 20.8 mmol/L (22.0-26.0); BG METHEMOGLOBIN 0.1 % (0.0-1.5); BG OXYGEN SATURATION 98.8 % (92.0-98.5); BG OXYHEMOGLOBIN 98.4 % (94.0-97.0); BG PCO2 26.3 mmHg (35.0-45.0); BG PH 7.517 (7.350-7.450); BG PO2 150.5 mmHg (75.0-100.0); BG SAMPLE SITE RIGHT RADIAL; BG TOTAL HEMOGLOBIN 10.1 g/dL (12.0-18.0); BG VENT MODE COOL AEROSOL
[2021-07-20] MEDS: IPRATROPIUM/ALBUTEROL 0.5-3(2.5)MG/3ML NEB HHN SCH (20:39)
[2021-07-21] VITALS (49 sets, daily range): BP systolic 88–210; BP diastolic 52–97
[2021-07-21] MEDS: MORPHINE SULFATE 2 MG/ML CPJ (NOT FOR IM USE) IV PRN ×7 (01:35→22:35)
[2021-07-21] MEDS: IPRATROPIUM/ALBUTEROL 0.5-3(2.5)MG/3ML NEB HHN SCH ×4 (02:34→20:57)
[2021-07-21 05:32] LABS: HEMATOCRIT. 28.2 % (36.0-48.0); HEMOGLOBIN. 9.1 g/dL (12.0-16.0); MEAN CORPUSCULAR HEMOGLOBIN 27.8 pg (28.0-32.0); MEAN CORPUSCULAR VOLUME 86.4 fL (81.0-99.0); MEAN PLATELET VOLUME 9.3 fl (7.4-10.4); PLATELET 286 x1000/uL (130-400); RED BLOOD CELL COUNT 3.27 mill/uL (4.2-5.4)
[2021-07-21 05:37] LABS: CHLORIDE 107 mEq/L (98-107)
[2021-07-21] MEDS: BLOOD SUGAR DIAGNOSTIC STRIP TEST SCH ×3 (05:43→17:55)
[2021-07-21] MEDS: DEXT 5%/0.45% NACL KCL 20MEQ/L 1,000 ML IV SCH (05:48)
[2021-07-21] MEDS: PIPERACILLIN/TAZOBACTAM 3.375G in DEXT 5% WATER 50ML IV SCH ×3 (05:50→22:45)
[2021-07-21] MEDS: INSULIN LISPRO 100 UNITS/ML SUBCUT SCH ×3 (05:50→17:54)
[2021-07-21] MEDS: PANTOPRAZOLE SODIUM 40 MG/VIAL IV SCH (08:00)
[2021-07-21] MEDS ORDERED: MORPHINE SULFATE 2 MG/ML CPJ (NOT FOR IM USE) IV NR (09:00)
[2021-07-21 09:08] LABS: PLATELET ESTIMATE NORMAL
[2021-07-21 12:16] LABS: BG BASE EXCESS -0.2 mmol/L (-2.0-2.0); BG CARBOXYHEMOGLOBIN 0.3 % (0.5-1.5); BG DEOXYHEMOGLOBIN 5.4 % (0.0-5.0); BG HCO3 ACT 23.5 mmol/L (22.0-26.0); BG METHEMOGLOBIN 0.1 % (0.0-1.5); BG OXYGEN SATURATION 94.6 % (92.0-98.5); BG OXYHEMOGLOBIN 94.2 % (94.0-97.0); BG PCO2 34.9 mmHg (35.0-45.0); BG PH 7.447 (7.350-7.450); BG PO2 77.2 mmHg (75.0-100.0); BG SAMPLE SITE RIGHT RADIAL; BG TOTAL HEMOGLOBIN 10.6 g/dL (12.0-18.0); BG VENT MODE NASAL CANNULA
[2021-07-21] MEDS: DEXT 5%/0.45% NACL 1000ML 1,000 ML IV SCH (14:05)
[2021-07-21 17:35] LABS: CLARITY URINE CLOUDY (CLEAR); COLOR URINE YELLOW (YELLOW); KETONES URINE NEGATIVE (NEGATIVE); LEUKOCYTE ESTERASE URINE 1+ (NEGATIVE); NITRITE URINE NEGATIVE (NEGATIVE); OCCULT BLOOD URINE TRACE (NEGATIVE); PROTEIN URINE 2+ (NEGATIVE); SPECIFIC GRAVITY URINE 1.025 (1.005-1.030)
[2021-07-21] MEDS ORDERED: DEXT 5%/0.45% NACL KCL 20MEQ/L 1,000 ML IV SCH (18:00)
[2021-07-22] VITALS (7 sets, daily range): BP systolic 125–146; BP diastolic 68–90
[2021-07-22] MEDS: BLOOD SUGAR DIAGNOSTIC STRIP TEST SCH ×4 (00:35→18:10)
[2021-07-22] MEDS: IPRATROPIUM/ALBUTEROL 0.5-3(2.5)MG/3ML NEB HHN SCH ×4 (00:42→19:59)
[2021-07-22] MEDS: MORPHINE SULFATE 2 MG/ML CPJ (NOT FOR IM USE) IV PRN ×4 (02:14→21:18)
[2021-07-22] MEDS: DEXT 5%/0.45% NACL 1000ML 1,000 ML IV SCH (03:20)
[2021-07-22] MEDS: PIPERACILLIN/TAZOBACTAM 3.375G in DEXT 5% WATER 50ML IV SCH ×3 (05:38→21:09)
[2021-07-22] MEDS: INSULIN LISPRO 100 UNITS/ML SUBCUT SCH ×4 (06:12→17:50)
[2021-07-22 06:41] LABS: CHLORIDE 107 mEq/L (98-107)
[2021-07-22 06:43] LABS: HEMATOCRIT. 30.9 % (36.0-48.0); MEAN CORPUSCULAR HEMOGLOBIN 27.3 pg (28.0-32.0); MEAN CORPUSCULAR VOLUME 84.1 fL (81.0-99.0); MEAN PLATELET VOLUME 8.8 fl (7.4-10.4); PLATELET 418 x1000/uL (130-400); RED BLOOD CELL COUNT 3.68 mill/uL (4.2-5.4); RED CELL DISTRIBUTION WIDTH 17.5 % (11.6-14.6)
[2021-07-22] MEDS: PANTOPRAZOLE SODIUM 40 MG/VIAL IV SCH (08:33)
[2021-07-22] MEDS ORDERED: FUROSEMIDE 40MG/4ML VIAL IVP NR (11:00)
[2021-07-22 13:03] LABS: BG BASE EXCESS -2.1 mmol/L (-2.0-2.0); BG CARBOXYHEMOGLOBIN 0.6 % (0.5-1.5); BG DEOXYHEMOGLOBIN 0.7 % (0.0-5.0); BG FRACTION INSPIRED OXYGEN 50; BG HCO3 ACT 20.3 mmol/L (22.0-26.0); BG METHEMOGLOBIN 0.3 % (0.0-1.5); BG OXYGEN SATURATION 99.3 % (92.0-98.5); BG OXYHEMOGLOBIN 98.4 % (94.0-97.0); BG PH 7.493 (7.350-7.450); BG PO2 160.4 mmHg (75.0-100.0); BG SAMPLE SITE LEFT BRACHIAL; BG TOTAL HEMOGLOBIN 10.3 g/dL (12.0-18.0); BG VENT MODE MASK - BIPAP
[2021-07-22] MEDS ORDERED: METHYLPREDNISOLONE SOD SUCC 40 MG/ML VIAL IV NR (13:45)
[2021-07-22 15:59] LABS: PLATELET ESTIMATE INCREASED
[2021-07-22] MEDS: FUROSEMIDE 40MG/4ML VIAL IVP SCH (17:39)
[2021-07-22] MEDS: FLUCONAZOLE 200 MG/100ML BAG 100 MG in CONTAINER,EMPTY 0 BAG IV SCH (19:03)
[2021-07-23] VITALS (12 sets, daily range): BP systolic 102–142; BP diastolic 58–80
[2021-07-23] MEDS: INSULIN LISPRO 100 UNITS/ML SUBCUT SCH ×5 (01:15→23:34)
[2021-07-23] MEDS: IPRATROPIUM/ALBUTEROL 0.5-3(2.5)MG/3ML NEB HHN SCH ×4 (02:03→21:03)
[2021-07-23] MEDS: MORPHINE SULFATE 2 MG/ML CPJ (NOT FOR IM USE) IV PRN ×6 (04:52→23:33)
[2021-07-23] MEDS: PIPERACILLIN/TAZOBACTAM 3.375G in DEXT 5% WATER 50ML IV SCH ×3 (05:28→21:25)
[2021-07-23] MEDS: BLOOD SUGAR DIAGNOSTIC STRIP TEST SCH ×5 (05:31→23:19)
[2021-07-23 06:14] LABS: BASOPHILS % 0.3 % (0.0-2.0); HEMATOCRIT. 28.4 % (36.0-48.0); HEMOGLOBIN. 9.2 g/dL (12.0-16.0); LYMPHOCYTES % 9.4 % (20.0-50.0); MEAN CORPUSCULAR HEMOGLOBIN 26.9 pg (28.0-32.0); MEAN CORPUSCULAR VOLUME 83.4 fL (81.0-99.0); MEAN PLATELET VOLUME 8.7 fl (7.4-10.4); MONOCYTES % 4.3 % (2.0-8.0); PLATELET 346 x1000/uL (130-400); RED BLOOD CELL COUNT 3.41 mill/uL (4.2-5.4); RED CELL DISTRIBUTION WIDTH 17.5 % (11.6-14.6)
[2021-07-23 06:25] LABS: CHLORIDE 107 mEq/L (98-107)
[2021-07-23] MEDS: FUROSEMIDE 40MG/4ML VIAL IVP SCH ×2 (08:32→16:54)
[2021-07-23] MEDS: PANTOPRAZOLE SODIUM 40 MG/VIAL IV SCH (08:32)
[2021-07-23] MEDS: FLUCONAZOLE 200 MG/100ML BAG 100 MG in CONTAINER,EMPTY 0 BAG IV SCH (13:32)
[2021-07-23] MEDS: DEXT 5%/0.45% NACL 1000ML 1,000 ML IV SCH (16:48)
[2021-07-23] MEDS: MICAFUNGIN 100MG in NORMAL SALINE 100ML IV SCH (17:58)
[2021-07-23] MEDS: ENOXAPARIN 40MG/0.4ML SYR SUBCUT SCH (20:06)
[2021-07-24] VITALS (11 sets, daily range): BP systolic 98–140; BP diastolic 50–86
[2021-07-24] MEDS: IPRATROPIUM/ALBUTEROL 0.5-3(2.5)MG/3ML NEB HHN SCH ×3 (00:29→22:09)
[2021-07-24] MEDS: MORPHINE SULFATE 2 MG/ML CPJ (NOT FOR IM USE) IV PRN ×6 (01:56→23:07)
[2021-07-24] MEDS: BLOOD SUGAR DIAGNOSTIC STRIP TEST SCH ×4 (05:25→23:50)
[2021-07-24] MEDS: PIPERACILLIN/TAZOBACTAM 3.375G in DEXT 5% WATER 50ML IV SCH ×3 (05:27→21:10)
[2021-07-24] MEDS: INSULIN LISPRO 100 UNITS/ML SUBCUT SCH ×4 (06:00→23:57)
[2021-07-24 07:46] LABS: CHLORIDE 107 mEq/L (98-107)
[2021-07-24 07:47] LABS: BASOPHILS % 0.1 % (0.0-2.0); EOSINOPHILS % 0.4 % (0.0-5.0); HEMATOCRIT. 25.7 % (36.0-48.0); HEMOGLOBIN. 8.2 g/dL (12.0-16.0); LYMPHOCYTES % 9.2 % (20.0-50.0); MEAN CORPUSCULAR HEMOGLOBIN 26.8 pg (28.0-32.0); MEAN CORPUSCULAR VOLUME 83.7 fL (81.0-99.0); MEAN PLATELET VOLUME 8.5 fl (7.4-10.4); MONOCYTES % 8.6 % (2.0-8.0); NEUTROPHILS % 81.7 % (40.0-76.0); PLATELET 342 x1000/uL (130-400); RED BLOOD CELL COUNT 3.07 mill/uL (4.2-5.4)
[2021-07-24] MEDS ORDERED: POTASSIUM CHLORIDE INJ 40 MEQ in DEXT 5% WATER 250 ML IV ONE (09:15)
[2021-07-24] MEDS: FUROSEMIDE 40MG/4ML VIAL IVP SCH ×2 (09:38→16:45)
[2021-07-24] MEDS: PANTOPRAZOLE SODIUM 40 MG/VIAL IV SCH (09:38)
[2021-07-24] MEDS: KCL 20MEQ/100ML PREMIX 100 ML IV SCH ×4 (11:44→17:23)
[2021-07-24] MEDS: DEXT 5%/0.45% NACL 1000ML 1,000 ML IV SCH (16:45)
[2021-07-24] MEDS: MICAFUNGIN 100MG in NORMAL SALINE 100ML IV SCH (17:24)
[2021-07-24] MEDS: ENOXAPARIN 40MG/0.4ML SYR SUBCUT SCH (20:46)
[2021-07-25] VITALS: BP 122/66
[2021-07-25] MEDS: MORPHINE SULFATE 2 MG/ML CPJ (NOT FOR IM USE) IV PRN ×5 (01:57→21:09)
[2021-07-25] MEDS: IPRATROPIUM/ALBUTEROL 0.5-3(2.5)MG/3ML NEB HHN SCH ×4 (02:29→20:27)
[2021-07-25 04:00] VITALS: BP 125/71
[2021-07-25] MEDS: BLOOD SUGAR DIAGNOSTIC STRIP TEST SCH ×3 (05:27→18:11)
[2021-07-25] MEDS: PIPERACILLIN/TAZOBACTAM 3.375G in DEXT 5% WATER 50ML IV SCH ×3 (06:43→23:30)
[2021-07-25] MEDS: INSULIN LISPRO 100 UNITS/ML SUBCUT SCH ×3 (06:44→18:15)
[2021-07-25 08:00] VITALS: BP 110/65
[2021-07-25] MEDS: PANTOPRAZOLE SODIUM 40 MG/VIAL IV SCH (08:49)
[2021-07-25] MEDS: FUROSEMIDE 40MG/4ML VIAL IVP SCH ×2 (08:49→16:09)
[2021-07-25 10:27] LABS: HEMATOCRIT. 29.8 % (36.0-48.0); HEMOGLOBIN. 9.5 g/dL (12.0-16.0); MEAN CORPUSCULAR HEMOGLOBIN 27.1 pg (28.0-32.0); MEAN CORPUSCULAR VOLUME 84.8 fL (81.0-99.0); MEAN PLATELET VOLUME 8.5 fl (7.4-10.4); PLATELET 368 x1000/uL (130-400); RED BLOOD CELL COUNT 3.51 mill/uL (4.2-5.4); RED CELL DISTRIBUTION WIDTH 16.9 % (11.6-14.6)
[2021-07-25 11:23] LABS: CHLORIDE 104 mEq/L (98-107)
[2021-07-25 12:00] VITALS: BP 140/90
[2021-07-25] MEDS ORDERED: MAGNESIUM 2 G PREMIX 50 ML IV SCH (12:00)
[2021-07-25 15:51] LABS: PLATELET ESTIMATE NORMAL
[2021-07-25 16:00] VITALS: BP 133/67
[2021-07-25] MEDS: DEXT 5%/0.45% NACL 1000ML 1,000 ML IV SCH (16:09)
[2021-07-25] MEDS: DOCUSATE SODIUM 100MG CAPSULE PO SCH (17:14)
[2021-07-25] MEDS: MICAFUNGIN 100MG in NORMAL SALINE 100ML IV SCH (17:15)
[2021-07-25 20:00] VITALS: BP 125/67
[2021-07-25] MEDS: ENOXAPARIN 40MG/0.4ML SYR SUBCUT SCH (21:08)
[2021-07-26] MEDS: ONDANSETRON HCL 4MG/2ML INJ IV PRN
[2021-07-26 00:01] VITALS: BP 128/65
[2021-07-26] MEDS: MORPHINE SULFATE 2 MG/ML CPJ (NOT FOR IM USE) IV PRN ×4 (00:02→19:40)
[2021-07-26] MEDS: IPRATROPIUM/ALBUTEROL 0.5-3(2.5)MG/3ML NEB HHN SCH ×5 (01:25→20:16)
[2021-07-26 04:00] VITALS: BP 126/67
[2021-07-26] MEDS: BLOOD SUGAR DIAGNOSTIC STRIP TEST SCH ×4 (05:28→17:47)
[2021-07-26] MEDS: INSULIN LISPRO 100 UNITS/ML SUBCUT SCH ×4 (05:28→17:50)
[2021-07-26] MEDS: PIPERACILLIN/TAZOBACTAM 3.375G in DEXT 5% WATER 50ML IV SCH ×3 (05:28→21:30)
[2021-07-26 07:13] LABS: BASOPHILS % 0.1 % (0.0-2.0); EOSINOPHILS % 1.6 % (0.0-5.0); HEMATOCRIT. 27.6 % (36.0-48.0); HEMOGLOBIN. 8.9 g/dL (12.0-16.0); LYMPHOCYTES % 16.3 % (20.0-50.0); MEAN CORPUSCULAR HEMOGLOBIN 26.7 pg (28.0-32.0); MEAN PLATELET VOLUME 8.7 fl (7.4-10.4); MONOCYTES % 8.3 % (2.0-8.0); NEUTROPHILS % 73.7 % (40.0-76.0); PLATELET 351 x1000/uL (130-400); RED BLOOD CELL COUNT 3.33 mill/uL (4.2-5.4); RED CELL DISTRIBUTION WIDTH 17.4 % (11.6-14.6)
[2021-07-26 07:30] LABS: CHLORIDE 102 mEq/L (98-107)
[2021-07-26] MEDS: DEXT 5%/0.45% NACL 1000ML 1,000 ML IV SCH (07:42)
[2021-07-26 08:00] VITALS: BP 109/51
[2021-07-26] MEDS: DOCUSATE SODIUM 100MG CAPSULE PO SCH ×2 (08:59→16:54)
[2021-07-26] MEDS: ACETAMINOPHEN 325MG TABLET PO PRN ×2 (08:59→17:59)
[2021-07-26] MEDS: PANTOPRAZOLE SODIUM 40 MG/VIAL IV SCH (09:00)
[2021-07-26] MEDS: FUROSEMIDE 40MG/4ML VIAL IVP SCH ×2 (09:00→16:54)
[2021-07-26] MEDS ORDERED: POTASSIUM CHLORIDE 20MEQ/PACKET PO NR ×2 (10:45→15:00)
[2021-07-26] MEDS ORDERED: LACTULOSE 20G/30ML UDC PO NR (11:30)
[2021-07-26 11:46] VITALS: BP 116/58
[2021-07-26] MEDS ORDERED: MAGNESIUM 2 G PREMIX 50 ML IV SCH (12:00)
[2021-07-26] MEDS: BISACODYL 10MG SUPP PR NR ×2 (12:03→13:00)
[2021-07-26 16:00] VITALS: BP 100/56
[2021-07-26] MEDS: MICAFUNGIN 100MG in NORMAL SALINE 100ML IV SCH (16:54)
[2021-07-26 17:50] LABS: CHLORIDE 102 mEq/L (98-107)
[2021-07-26 20:00] VITALS: BP 109/66
[2021-07-26] MEDS: ENOXAPARIN 40MG/0.4ML SYR SUBCUT SCH (21:30)
[2021-07-27] VITALS (8 sets, daily range): BP systolic 105–127; BP diastolic 57–79
[2021-07-27] MEDS: INSULIN LISPRO 100 UNITS/ML SUBCUT SCH ×4 (00:15→18:00)
[2021-07-27] MEDS: MORPHINE SULFATE 2 MG/ML CPJ (NOT FOR IM USE) IV PRN ×6 (00:20→23:32)
[2021-07-27] MEDS: IPRATROPIUM/ALBUTEROL 0.5-3(2.5)MG/3ML NEB HHN SCH ×4 (00:59→20:18)
[2021-07-27] MEDS: BLOOD SUGAR DIAGNOSTIC STRIP TEST SCH ×4 (05:42→17:59)
[2021-07-27] MEDS: PIPERACILLIN/TAZOBACTAM 3.375G in DEXT 5% WATER 50ML IV SCH ×3 (06:17→22:38)
[2021-07-27 06:19] LABS: BASOPHILS % 0.2 % (0.0-2.0); EOSINOPHILS % 3.3 % (0.0-5.0); HEMOGLOBIN. 8.5 g/dL (12.0-16.0); LYMPHOCYTES % 19.4 % (20.0-50.0); MEAN CORPUSCULAR HEMOGLOBIN 27.2 pg (28.0-32.0); MEAN CORPUSCULAR VOLUME 82.9 fL (81.0-99.0); MEAN PLATELET VOLUME 8.6 fl (7.4-10.4); MONOCYTES % 7.4 % (2.0-8.0); NEUTROPHILS % 69.7 % (40.0-76.0); PLATELET 354 x1000/uL (130-400); RED BLOOD CELL COUNT 3.13 mill/uL (4.2-5.4); RED CELL DISTRIBUTION WIDTH 17.3 % (11.6-14.6)
[2021-07-27 06:51] LABS: CHLORIDE 102 mEq/L (98-107)
[2021-07-27] MEDS: FUROSEMIDE 40MG/4ML VIAL IVP SCH ×2 (08:56→17:59)
[2021-07-27] MEDS: PANTOPRAZOLE SODIUM 40 MG/VIAL IV SCH (08:56)
[2021-07-27] MEDS: DOCUSATE SODIUM 100MG CAPSULE PO SCH ×2 (08:56→17:59)
[2021-07-27] MEDS ORDERED: POTASSIUM CHLORIDE 20MEQ TABLET SR PO ONE (10:15)
[2021-07-27] MEDS: POTASSIUM CHLORIDE 20MEQ TABLET SR PO SCH ×2 (10:30→15:09)
[2021-07-27] MEDS: DEXT 5%/0.45% NACL 1000ML 1,000 ML IV SCH (15:08)
[2021-07-27] MEDS ORDERED: POTASSIUM CHLORIDE 20MEQ TABLET SR PO SCH (17:15)
[2021-07-27] MEDS: MICAFUNGIN 100MG in NORMAL SALINE 100ML IV SCH (17:59)
[2021-07-27] MEDS: ENOXAPARIN 40MG/0.4ML SYR SUBCUT SCH (21:00)
[2021-07-27] MEDS: ONDANSETRON HCL 4MG/2ML INJ IV PRN (21:37)
[2021-07-28] VITALS: BP 119/65
[2021-07-28] MEDS: IPRATROPIUM/ALBUTEROL 0.5-3(2.5)MG/3ML NEB HHN SCH ×2 (00:56→08:56)
[2021-07-28 04:00] VITALS: BP 121/56
[2021-07-28] MEDS: BLOOD SUGAR DIAGNOSTIC STRIP TEST SCH ×2 (05:00)
[2021-07-28] MEDS: PIPERACILLIN/TAZOBACTAM 3.375G in DEXT 5% WATER 50ML IV SCH (05:00)
[2021-07-28] MEDS: INSULIN LISPRO 100 UNITS/ML SUBCUT SCH ×2 (06:31)
[2021-07-28] MEDS: MORPHINE SULFATE 2 MG/ML CPJ (NOT FOR IM USE) IV PRN (07:13)
[2021-07-28 08:00] VITALS: BP 118/66
[2021-07-28] MEDS: PANTOPRAZOLE SODIUM 40 MG/VIAL IV SCH (09:03)
[2021-07-28] MEDS: FUROSEMIDE 40MG/4ML VIAL IVP SCH (09:03)
[2021-07-28] MEDS: DOCUSATE SODIUM 100MG CAPSULE PO SCH (09:09)
== END 2021-07-28 12:15 | DRG 326 ==
LOC: ER 11:41 → EDBEDREQ 20:14 → MICUNO 20:43 → 6WST 07-21 15:08 → 5EST 07-22 14:50
PROVIDERS: ADMIT Internal Medicine; ATTEND Internal Medicine
PROC: 0DU607Z Supplement Stomach with Autologous Tissue Substitute, Open Approach (ICD-10-PCS; principal; 2021-07-19)
PROC: 02HV33Z Insertion of Infusion Device into Superior Vena Cava, Percutaneous Approach (ICD-10-PCS; 2021-07-20)
PROC: B548ZZA Ultrasonography of Superior Vena Cava, Guidance (ICD-10-PCS; 2021-07-20)
PROC: 5A09357 Assistance with Respiratory Ventilation, Less than 24 Consecutive Hours, Continuous Positive Airway Pressure (ICD-10-PCS; 2021-07-22)
DX: K25.1 Acute gastric ulcer with perforation (principal); I50.43 Acute on chronic combined systolic (congestive) and diastolic (congestive) heart failure; K65.9 Peritonitis, unspecified; J96.00 Acute respiratory failure, unspecified whether with hypoxia or hypercapnia; E87.1 Hypo-osmolality and hyponatremia; J44.1 Chronic obstructive pulmonary disease with (acute) exacerbation; R18.8 Other ascites; E87.4 Mixed disorder of acid-base balance; B37.49 Other urogenital candidiasis; K63.3 Ulcer of intestine; D64.9 Anemia, unspecified; E11.65 Type 2 diabetes mellitus with hyperglycemia; E83.51 Hypocalcemia; E87.6 Hypokalemia; I11.0 Hypertensive heart disease with heart failure; E83.42 Hypomagnesemia; Z20.822 Contact with and (suspected) exposure to COVID-19; I25.10 Atherosclerotic heart disease of native coronary artery without angina pectoris; I27.20 Pulmonary hypertension, unspecified; K44.9 Diaphragmatic hernia without obstruction or gangrene; K66.0 Peritoneal adhesions (postprocedural) (postinfection); K82.8 Other specified diseases of gallbladder; Z79.82 Long term (current) use of aspirin; Z79.899 Other long term (current) drug therapy
CPT/HCPCS: 36415; 36600; 71045; 74018; 74174; 76937; 80048; 80053; 80076; 81003; 82375; 82805; 82962; 83605; 83735; 83880; 84132; 84145; 84484; 85025; 86850; 86900; 87070; 87075; 87106; 87426; 93005; 93306; 93970; 94002; 94003; 94640; 94660; 97162; 97166; 99285; C1725; C9113; J0330; J0690; J0696; J1450; J1650; J1815; J1885; J1940; J2248; J2250; J2270; J2370; J2405; J2543; J2704; J2710; J2765; J2920; J3010; J3475; J3480; J3490; J7030; J7050; J7060; P9041; Q9967; A4315

== ENCOUNTER 2021-09-17 19:46 | Inpatient (IN) | payer OTHER, MEDICAID ==
[~2021-09-17] VITALS: Ht 152.4 cm; Wt 57.6 kg
[2021-09-17] MEDS ORDERED: VANCOMYCIN 1G PREMIX 200 ML IV SCH (21:00)
[2021-09-17] MEDS ORDERED: SODIUM CHLORIDE 0.9% 1,000 ML IV ONE (21:00)
[2021-09-17 21:23] LABS: CHLORIDE 104 mEq/L (98-107)
[2021-09-17 21:34] LABS: BASOPHILS % 0.7 % (0.0-2.0); HEMATOCRIT. 28.5 % (36.0-48.0); LYMPHOCYTES % 33.5 % (20.0-50.0); MEAN CORPUSCULAR HEMOGLOBIN 25.9 pg (28.0-32.0); MEAN CORPUSCULAR VOLUME 82.2 fL (81.0-99.0); MEAN PLATELET VOLUME 7.7 fl (7.4-10.4); MONOCYTES % 11.3 % (2.0-8.0); NEUTROPHILS % 53.5 % (40.0-76.0); PLATELET 615 x1000/uL (130-400); RED BLOOD CELL COUNT 3.47 mill/uL (4.2-5.4); RED CELL DISTRIBUTION WIDTH 20.9 % (11.6-14.6)
[2021-09-18 12:00] VITALS: BP 106/50
[2021-09-18 12:25] VITALS: BP 108/57
[2021-09-18] MEDS ORDERED: ACETAMINOPHEN 325MG TABLET PO PRN (14:15)
[2021-09-18] MEDS ORDERED: IPRATROPIUM/ALBUTEROL 0.5-3(2.5)MG/3ML NEB HHN PRN (14:15)
[2021-09-18] MEDS ORDERED: ONDANSETRON HCL 4MG/2ML INJ IV PRN (14:15)
[2021-09-18] MEDS ORDERED: NALOXONE HCL 0.4MG/ML VIAL IV PRN (14:30)
[2021-09-18] MEDS: ENOXAPARIN 40MG/0.4ML SYR SUBCUT SCH (15:13)
[2021-09-18 16:00] VITALS: BP 121/94
[2021-09-18] MEDS ORDERED: VANCOMYCIN 1G PREMIX 200 ML IV SCH (16:00)
[2021-09-18] MEDS: PIPERACILLIN/TAZOBACTAM 3.375 G in DEXTROSE 5% WATER 50 ML IV SCH ×2 (16:28→22:24)
[2021-09-18] MEDS: HYDROCODONE/ACETAMINOPHEN 5/325MG TABLET PO PRN (16:29)
[2021-09-18] MEDS ORDERED: ASPI-1497 PO (17:20)
[2021-09-18] MEDS ORDERED: CYCL5TAB PO (17:25)
[2021-09-18] MEDS ORDERED: DULO30CA52 PO (17:25)
[2021-09-18] MEDS ORDERED: CLOP75TA33 PO (17:25)
[2021-09-18] MEDS ORDERED: FURO20TA4 PO (17:25)
[2021-09-18] MEDS ORDERED: LISI20TA31 PO (17:25)
[2021-09-18] MEDS ORDERED: METO25TA6 PO (17:25)
[2021-09-18] MEDS ORDERED: PANT40TA51 PO (17:25)
[2021-09-18] MEDS ORDERED: METF-416 PO ×2 (17:25)
[2021-09-18 20:00] VITALS: BP 114/75
[2021-09-18] MEDS: MORPHINE SULFATE 2 MG/ML CPJ (NOT FOR IM USE) IV PRN (22:23)
[2021-09-19] VITALS: BP 135/55
[2021-09-19 01:35] LABS: CREATINE KINASE MB FRACTION 2.4 ng/mL (0.5-3.6)
[2021-09-19] MEDS: MORPHINE SULFATE 2 MG/ML CPJ (NOT FOR IM USE) IV PRN ×6 (02:32→23:04)
[2021-09-19 04:00] VITALS: BP 135/55
[2021-09-19] MEDS: PIPERACILLIN/TAZOBACTAM 3.375 G in DEXTROSE 5% WATER 50 ML IV SCH ×3 (05:36→22:15)
[2021-09-19 07:00] LABS: BASOPHILS % 0.6 % (0.0-2.0); EOSINOPHILS % 1.7 % (0.0-5.0); HEMOGLOBIN. 7.8 g/dL (12.0-16.0); LYMPHOCYTES % 30.7 % (20.0-50.0); MEAN CORPUSCULAR HEMOGLOBIN 26.3 pg (28.0-32.0); MEAN PLATELET VOLUME 7.7 fl (7.4-10.4); MONOCYTES % 12.7 % (2.0-8.0); NEUTROPHILS % 54.3 % (40.0-76.0); PLATELET 466 x1000/uL (130-400); RED BLOOD CELL COUNT 2.97 mill/uL (4.2-5.4); RED CELL DISTRIBUTION WIDTH 20.3 % (11.6-14.6)
[2021-09-19 07:14] LABS: CHLORIDE 106 mEq/L (98-107)
[2021-09-19 07:28] LABS: CREATINE KINASE 50 IU/L (26-192); HDL CHOLESTEROL 47 mg/dL (40-59); T4 FREE 1.25 ng/dL (0.76-1.46)
[2021-09-19 07:37] LABS: LDL CHOLESTEROL 44 mg/dL (5-100)
[2021-09-19 08:00] VITALS: BP 125/83
[2021-09-19] MEDS ORDERED: POTASSIUM CHLORIDE 20MEQ TABLET SR PO SCH (08:15)
[2021-09-19] MEDS ORDERED: DEXTROSE 50% WATER 50ML SYRINGE IV PRN (08:15)
[2021-09-19] MEDS ORDERED: VANCOMYCIN 1G PREMIX 200 ML IV SCH ×3 (09:15→16:00)
[2021-09-19] MEDS: ENOXAPARIN 40MG/0.4ML SYR SUBCUT SCH (09:17)
[2021-09-19 12:00] VITALS: BP 136/72
[2021-09-19] MEDS: INSULIN LISPRO 100 UNITS/ML SUBCUT SCH ×3 (12:50→21:00)
[2021-09-19] MEDS: BLOOD SUGAR DIAGNOSTIC STRIP TEST SCH ×3 (13:05→21:00)
[2021-09-19] MEDS: HYDROCODONE/ACETAMINOPHEN 5/325MG TABLET PO PRN (14:22)
[2021-09-19 16:00] VITALS: BP 105/60
[2021-09-19 20:00] VITALS: BP 122/56
[2021-09-20] VITALS: BP 127/62
[2021-09-20] MEDS: HYDROCODONE/ACETAMINOPHEN 5/325MG TABLET PO PRN ×2 (02:20→16:52)
[2021-09-20 04:00] VITALS: BP 117/70
[2021-09-20] MEDS: MORPHINE SULFATE 2 MG/ML CPJ (NOT FOR IM USE) IV PRN ×3 (06:39→21:14)
[2021-09-20] MEDS: PIPERACILLIN/TAZOBACTAM 3.375 G in DEXTROSE 5% WATER 50 ML IV SCH ×3 (06:39→21:07)
[2021-09-20] MEDS: BLOOD SUGAR DIAGNOSTIC STRIP TEST SCH ×4 (07:39→21:06)
[2021-09-20] MEDS: INSULIN LISPRO 100 UNITS/ML SUBCUT SCH ×4 (07:50→21:00)
[2021-09-20 08:00] VITALS: BP 134/62
[2021-09-20 08:40] LABS: CHLORIDE 106 mEq/L (98-107)
[2021-09-20] MEDS ORDERED: POTASSIUM CHLORIDE 20MEQ TABLET SR PO NR (09:00)
[2021-09-20] MEDS: ENOXAPARIN 40MG/0.4ML SYR SUBCUT SCH (09:18)
[2021-09-20 12:00] VITALS: BP 130/66
[2021-09-20] MEDS: VANCOMYCIN 500MG PREMIX 100 ML IV SCH (13:54)
[2021-09-20 16:00] VITALS: BP 112/51
[2021-09-20 20:00] VITALS: BP 114/55
[2021-09-21] VITALS: BP 140/54
[2021-09-21] MEDS: VANCOMYCIN 500MG PREMIX 100 ML IV SCH ×2 (00:30→16:10)
[2021-09-21] MEDS: HYDROCODONE/ACETAMINOPHEN 5/325MG TABLET PO PRN ×3 (00:52→23:07)
[2021-09-21] MEDS: MORPHINE SULFATE 2 MG/ML CPJ (NOT FOR IM USE) IV PRN ×4 (03:17→21:30)
[2021-09-21 04:00] VITALS: BP 116/77
[2021-09-21] MEDS: PIPERACILLIN/TAZOBACTAM 3.375 G in DEXTROSE 5% WATER 50 ML IV SCH ×3 (05:33→21:31)
[2021-09-21] MEDS: BLOOD SUGAR DIAGNOSTIC STRIP TEST SCH ×4 (06:52→20:58)
[2021-09-21] MEDS: INSULIN LISPRO 100 UNITS/ML SUBCUT SCH ×4 (07:33→20:58)
[2021-09-21 08:00] VITALS: BP 129/69
[2021-09-21] MEDS: ENOXAPARIN 40MG/0.4ML SYR SUBCUT SCH (09:13)
[2021-09-21 12:00] VITALS: BP 133/68
[2021-09-21] MEDS ORDERED: LIDOCAINE HCL 1% 20ML VIAL (Pyxis) INJ ONE (12:31)
[2021-09-21] MEDS ORDERED: IOHEXOL-350 100 ML BOTTLE ONE (14:51)
[2021-09-21 16:00] VITALS: BP 116/68
[2021-09-21 20:00] VITALS: BP 117/60
[2021-09-22] VITALS: BP 131/69
[2021-09-22] MEDS: VANCOMYCIN 500MG PREMIX 100 ML IV SCH ×2 (00:30→13:06)
[2021-09-22] MEDS: MORPHINE SULFATE 2 MG/ML CPJ (NOT FOR IM USE) IV PRN ×3 (02:54→20:29)
[2021-09-22 04:00] VITALS: BP 118/68
[2021-09-22] MEDS: PIPERACILLIN/TAZOBACTAM 3.375 G in DEXTROSE 5% WATER 50 ML IV SCH ×3 (06:21→22:00)
[2021-09-22] MEDS: BLOOD SUGAR DIAGNOSTIC STRIP TEST SCH ×4 (06:42→20:38)
[2021-09-22] MEDS: INSULIN LISPRO 100 UNITS/ML SUBCUT SCH ×4 (06:57→20:38)
[2021-09-22 08:00] VITALS: BP 139/80
[2021-09-22 08:00] LABS: CHLORIDE 107 mEq/L (98-107)
[2021-09-22] MEDS: ENOXAPARIN 40MG/0.4ML SYR SUBCUT SCH (08:38)
[2021-09-22] MEDS ORDERED: POTASSIUM CHLORIDE INJ 40 MEQ in DEXT 5% WATER 500 ML IV ONE (11:30)
[2021-09-22] MEDS: KCL 20MEQ/100ML PREMIX 100 ML IV SCH ×2 (14:25→20:16)
[2021-09-22 16:00] VITALS: BP 143/57
[2021-09-22] MEDS: HYDROCODONE/ACETAMINOPHEN 5/325MG TABLET PO PRN ×2 (16:41→22:25)
[2021-09-23] VITALS: BP 118/73
[2021-09-23] MEDS: VANCOMYCIN 500MG PREMIX 100 ML IV SCH ×2 (01:35→12:54)
[2021-09-23] MEDS: MORPHINE SULFATE 2 MG/ML CPJ (NOT FOR IM USE) IV PRN ×3 (01:43→12:55)
[2021-09-23 04:00] VITALS: BP 111/75
[2021-09-23] MEDS: BLOOD SUGAR DIAGNOSTIC STRIP TEST SCH ×4 (06:22→21:00)
[2021-09-23] MEDS: INSULIN LISPRO 100 UNITS/ML SUBCUT SCH ×4 (06:54→21:00)
[2021-09-23] MEDS ORDERED: HEPARIN SODIUM 1,000 UNIT/1ML VIAL IV ONE (08:21)
[2021-09-23] MEDS: ENOXAPARIN 40MG/0.4ML SYR SUBCUT SCH (09:03)
[2021-09-23] MEDS: PIPERACILLIN/TAZOBACTAM 3.375 G in DEXTROSE 5% WATER 50 ML IV SCH (09:04)
[2021-09-23] MEDS ORDERED: LIDOCAINE HCL 1% 20ML VIAL (Pyxis) INJ ONE (10:13)
[2021-09-23] MEDS ORDERED: IODIXANOL 320MG/ML 100 ML BOTTLE IV ONE (10:13)
[2021-09-23] MEDS ORDERED: MIDAZOLAM HCL 2 MG/2 ML VIAL ONE (10:40)
[2021-09-23] MEDS ORDERED: FENTANYL CITRATE/PF 50MCG/ML 2ML VIAL ONE (10:41)
[2021-09-23] MEDS ORDERED: IOHEXOL-300 100 ML BOTTLE ONE (11:06)
[2021-09-23] MEDS ORDERED: PROTAMINE SULFATE 10MG/ML VIAL 5ML IV ONE (11:38)
[2021-09-23 15:42] LABS: BASOPHILS % 0.4 % (0.0-2.0); EOSINOPHILS % 2.4 % (0.0-5.0); HEMATOCRIT. 25.5 % (36.0-48.0); HEMOGLOBIN. 8.1 g/dL (12.0-16.0); LYMPHOCYTES % 27.4 % (20.0-50.0); MEAN CORPUSCULAR HEMOGLOBIN 25.6 pg (28.0-32.0); MONOCYTES % 8.7 % (2.0-8.0); NEUTROPHILS % 61.1 % (40.0-76.0); PLATELET 481 x1000/uL (130-400); RED BLOOD CELL COUNT 3.15 mill/uL (4.2-5.4)
[2021-09-23 15:59] LABS: CHLORIDE 106 mEq/L (98-107)
[2021-09-23 20:00] VITALS: BP 139/79
[2021-09-24] VITALS: BP 142/57
[2021-09-24] MEDS: MORPHINE SULFATE 2 MG/ML CPJ (NOT FOR IM USE) IV PRN ×5 (01:08→21:32)
[2021-09-24 04:00] VITALS: BP 150/79
[2021-09-24] MEDS: BLOOD SUGAR DIAGNOSTIC STRIP TEST SCH ×4 (07:00→20:56)
[2021-09-24] MEDS: INSULIN LISPRO 100 UNITS/ML SUBCUT SCH ×4 (07:50→20:56)
[2021-09-24 08:00] VITALS: BP 122/47
[2021-09-24] MEDS: ENOXAPARIN 40MG/0.4ML SYR SUBCUT SCH (09:21)
[2021-09-24] MEDS: CLOPIDOGREL 75MG TABLET PO SCH (09:22)
[2021-09-24 12:00] VITALS: BP 146/65
[2021-09-24] MEDS ORDERED: LIDOCAINE HCL 1% 20ML VIAL (Pyxis) INJ ONE (14:58)
[2021-09-24] MEDS ORDERED: BUPIVACAINE HCL/PF 0.5% (5MG/ML) 10ML ONE (14:58)
[2021-09-24] MEDS ORDERED: POLYMYXIN B SULFATE 500000 UNITS/VIAL ONE (14:58)
[2021-09-24] MEDS ORDERED: [UNRECOGNIZED DRUG - REMARK] XX SCH (15:00)
[2021-09-24 16:00] VITALS: BP 144/69
[2021-09-24] MEDS: PIPERACILLIN/TAZOBACTAM 3.375 G in DEXTROSE 5% WATER 50 ML IV SCH ×2 (16:12→21:06)
[2021-09-24] MEDS ORDERED: THROMBIN (BOVINE) 5000 UNITS/VIAL TOP ONE (16:27)
[2021-09-24] MEDS ORDERED: BISACODYL 10MG SUPP PR PRN ×2 (16:30→20:00)
[2021-09-24] MEDS ORDERED: MIDAZOLAM HCL 2 MG/2 ML VIAL ONE (17:24)
[2021-09-24] MEDS ORDERED: FENTANYL CITRATE/PF 50MCG/ML 2ML VIAL ONE (17:31)
[2021-09-24] MEDS ORDERED: HYDROMORPHONE HCL/PF 2MG/ML CPJ IV PRN (17:45)
[2021-09-24] MEDS ORDERED: ONDANSETRON HCL 4MG/2ML INJ IV PRN (17:45)
[2021-09-24] MEDS ORDERED: LABETALOL 5MG/ML SYR 20 MG/4 ML SYRINGE IV PRN (17:45)
[2021-09-24] MEDS ORDERED: MEPERIDINE HCL/PF 25MG/ML CPJ IV PRN (17:45)
[2021-09-24] MEDS: VANCOMYCIN 500MG PREMIX 100 ML IV SCH (19:12)
[2021-09-24 20:00] VITALS: BP 115/60
[2021-09-24] MEDS: LACTULOSE 20G/30ML UDC PO PRN (21:11)
[2021-09-24 22:45] LABS: BASOPHILS % 0.5 % (0.0-2.0); EOSINOPHILS % 1.6 % (0.0-5.0); LYMPHOCYTES % 25.9 % (20.0-50.0); MEAN PLATELET VOLUME 8.1 fl (7.4-10.4); MONOCYTES % 12.2 % (2.0-8.0); NEUTROPHILS % 59.8 % (40.0-76.0); PLATELET 393 x1000/uL (130-400); RED BLOOD CELL COUNT 2.54 mill/uL (4.2-5.4); RED CELL DISTRIBUTION WIDTH 20.6 % (11.6-14.6)
[2021-09-24 22:51] LABS: HEMATOCRIT. 20.5 % (36.0-48.0); HEMOGLOBIN. 6.6 g/dL (12.0-16.0)
[2021-09-24 22:52] LABS: CHLORIDE 110 mEq/L (98-107); INR 1.1; PROTHROMBIN TIME 11.7 sec (9.6-11.0)
[2021-09-24] MEDS ORDERED: POTASSIUM CHLORIDE 20MEQ TABLET SR PO NR (23:15)
[2021-09-25] VITALS (10 sets, daily range): BP systolic 99–137; BP diastolic 57–76
[2021-09-25] MEDS: MORPHINE SULFATE 2 MG/ML CPJ (NOT FOR IM USE) IV PRN ×2 (01:37→05:35)
[2021-09-25] MEDS: VANCOMYCIN 500MG PREMIX 100 ML IV SCH (06:40)
[2021-09-25] MEDS ORDERED: MORPHINE SULFATE 4 MG/ML CPJ (NOT FOR IM USE) IV PRN (06:45)
[2021-09-25] MEDS ORDERED: MORPHINE SULFATE 2 MG/ML CPJ (NOT FOR IM USE) IV PRN ×2 (07:00→07:15)
[2021-09-25] MEDS: BLOOD SUGAR DIAGNOSTIC STRIP TEST SCH ×2 (07:12→12:38)
[2021-09-25] MEDS: INSULIN LISPRO 100 UNITS/ML SUBCUT SCH ×2 (07:12→12:38)
[2021-09-25] MEDS: PIPERACILLIN/TAZOBACTAM 3.375 G in DEXTROSE 5% WATER 50 ML IV SCH ×2 (07:13→13:00)
[2021-09-25] MEDS: ENOXAPARIN 40MG/0.4ML SYR SUBCUT SCH (09:20)
[2021-09-25] MEDS: CLOPIDOGREL 75MG TABLET PO SCH (09:20)
[2021-09-25] MEDS: LACTULOSE 20G/30ML UDC PO PRN (09:26)
[2021-09-25 11:59] LABS: HEMATOCRIT 26.7 % (36.0-48.0); HEMOGLOBIN 8.4 g/dL (12.0-16.0); MEAN CORPUSCULAR HEMOGLOBIN 26.8 pg (28.0-32.0); MEAN CORPUSCULAR VOLUME 85.1 fL (81.0-99.0); PLATELET 393 x1000/uL (130-400); RED BLOOD CELL COUNT 3.14 mill/uL (4.2-5.4)
[2021-09-25 12:26] LABS: CHLORIDE 111 mEq/L (98-107)
[2021-09-25] MEDS ORDERED: HYDR-4001 MT (13:40)
[2021-09-25] MEDS ORDERED: CEPH500C2 MT (13:40)
== END 2021-09-25 16:50 | DRG 271 ==
LOC: ER 19:46 → 6EST 22:59 → ENRESERV 09-18 10:04
PROVIDERS: ADMIT Internal Medicine; ATTEND Internal Medicine
PROC: 02HV33Z Insertion of Infusion Device into Superior Vena Cava, Percutaneous Approach (ICD-10-PCS; 2021-09-21)
PROC: B548ZZA Ultrasonography of Superior Vena Cava, Guidance (ICD-10-PCS; 2021-09-21)
PROC: B5181ZA Fluoroscopy of Superior Vena Cava using Low Osmolar Contrast, Guidance (ICD-10-PCS; 2021-09-21)
PROC: B41F1ZZ Fluoroscopy of Right Lower Extremity Arteries using Low Osmolar Contrast (ICD-10-PCS; principal; 2021-09-23)
PROC: 04CK3ZZ Extirpation of Matter from Right Femoral Artery, Percutaneous Approach (ICD-10-PCS; 2021-09-23)
PROC: 047K3ZZ Dilation of Right Femoral Artery, Percutaneous Approach (ICD-10-PCS; 2021-09-23)
PROC: 047M3ZZ Dilation of Right Popliteal Artery, Percutaneous Approach (ICD-10-PCS; 2021-09-23)
PROC: 04CM3ZZ Extirpation of Matter from Right Popliteal Artery, Percutaneous Approach (ICD-10-PCS; 2021-09-23)
PROC: 0Y6P0Z0 Detachment at Right 1st Toe, Complete, Open Approach (ICD-10-PCS; 2021-09-24)
PROC: 0Y6R0Z0 Detachment at Right 2nd Toe, Complete, Open Approach (ICD-10-PCS; 2021-09-24)
PROC: 30233N1 Transfusion of Nonautologous Red Blood Cells into Peripheral Vein, Percutaneous Approach (ICD-10-PCS; 2021-09-25)
DX: T82.856A Stenosis of peripheral vascular stent, initial encounter (principal); I70.261 Atherosclerosis of native arteries of extremities with gangrene, right leg; M86.8X7 Other osteomyelitis, ankle and foot; E11.52 Type 2 diabetes mellitus with diabetic peripheral angiopathy with gangrene; Y82.8 Other medical devices associated with adverse incidents; I50.9 Heart failure, unspecified; I11.0 Hypertensive heart disease with heart failure; J44.9 Chronic obstructive pulmonary disease, unspecified; D64.9 Anemia, unspecified; E11.69 Type 2 diabetes mellitus with other specified complication; E87.6 Hypokalemia; L08.9 Local infection of the skin and subcutaneous tissue, unspecified; Z20.822 Contact with and (suspected) exposure to COVID-19; F17.200 Nicotine dependence, unspecified, uncomplicated; I25.10 Atherosclerotic heart disease of native coronary artery without angina pectoris; Y92.89 Other specified places as the place of occurrence of the external cause; Z79.02 Long term (current) use of antithrombotics/antiplatelets; Z79.4 Long term (current) use of insulin; Z86.73 Personal history of transient ischemic attack (TIA), and cerebral infarction without residual deficits; I25.2 Old myocardial infarction; Z87.11 Personal history of peptic ulcer disease
CPT/HCPCS: 36415; 36573; 37225; 73630; 73721; 75635; 75710; 80048; 80053; 80061; 80202; 82550; 82553; 82962; 83036; 83605; 84439; 84443; 84484; 85025; 85027; 85347; 85651; 86140; 86850; 86900; 86920; 87070; 87075; 87426; 88305; 88311; 93923; 97162; 99285; C1725; C1760; C1769; C1885; C1887; C1893; C1894; J1644; J1650; J2250; J2270; J2405; J2543; J2720; J3010; J3370; J3480; J3490; J7030; J7040; J7060; P9016; Q9967

== ENCOUNTER 2021-09-27 16:14 | Emergency (ER) | payer OTHER, MEDICAID ==
[~2021-09-27] VITALS: Ht 152.4 cm; Wt 56.0 kg
[~2021-09-27 16:14] MED LIST changes: -AMIT25TA9 PO; +CEPH500C2 MT; +CLOP75TA33 PO; -CYCL10TA7 PO; +CYCL5TAB PO; +DULO30CA52 PO; -FERR-63 PO; +FURO20TA4 PO; +HYDR-4001 MT; +LISI20TA31 PO; -LOSA50TA3 PO; +METF-416 PO; +METO25TA6 PO; -OMEP20CA14 PO; +PANT40TA51 PO; -PREG100C MT; -TRAM50TA3 PO
[2021-09-27 16:18] VITALS: BP 116/76
[2021-09-27] MEDS ORDERED: HYDR-4001 MT (17:22)
== END 2021-09-27 18:53 | disposition home or self-care (01) ==
LOC: ER 16:14
DX: M79.671 Pain in right foot (principal); J44.9 Chronic obstructive pulmonary disease, unspecified; E11.9 Type 2 diabetes mellitus without complications; Z86.73 Personal history of transient ischemic attack (TIA), and cerebral infarction without residual deficits; R00.1 Bradycardia, unspecified; Z79.899 Other long term (current) drug therapy
CPT/HCPCS: 99281

== ENCOUNTER 2021-10-06 15:22 | Inpatient (IN) | payer OTHER, MEDICAID ==
[~2021-10-06] VITALS: Ht 152.4 cm; Wt 61.2 kg
[2021-10-06 19:46] LABS: BASOPHILS % 0.4 % (0.0-2.0); EOSINOPHILS % 1.6 % (0.0-5.0); HEMATOCRIT. 33.3 % (36.0-48.0); LYMPHOCYTES % 24.6 % (20.0-50.0); MEAN CORPUSCULAR VOLUME 81.7 fL (81.0-99.0); MEAN PLATELET VOLUME 7.8 fl (7.4-10.4); MONOCYTES % 9.8 % (2.0-8.0); NEUTROPHILS % 63.6 % (40.0-76.0); PLATELET 544 x1000/uL (130-400); RED BLOOD CELL COUNT 4.08 mill/uL (4.2-5.4)
[2021-10-06 19:51] LABS: CHLORIDE 103 mEq/L (98-107)
[2021-10-07] MEDS ORDERED: MORPHINE SULFATE 4 MG/ML CPJ (NOT FOR IM USE) IV ONE
[2021-10-07 10:48] LABS: CLARITY URINE CLEAR (CLEAR); COLOR URINE YELLOW (YELLOW); KETONES URINE TRACE (NEGATIVE); LEUKOCYTE ESTERASE URINE 3+ (NEGATIVE); NITRITE URINE NEGATIVE (NEGATIVE); OCCULT BLOOD URINE NEGATIVE (NEGATIVE); PH URINE 5.5 (4.5-8.0); PROTEIN URINE NEGATIVE (NEGATIVE); SPECIFIC GRAVITY URINE 1.022 (1.005-1.030); UROBILINOGEN URINE 0.2 E.U./dL (0.2-1.0)
[2021-10-07] MEDS ORDERED: ACETAMINOPHEN 650MG SUPP PR PRN (12:45)
[2021-10-07] MEDS ORDERED: NA PHOS,M-B/NA PHOS,DI-BA ENEMA 118ML PR PRN (12:45)
[2021-10-07] MEDS ORDERED: CLONIDINE 0.1MG TABLET PO PRN (12:45)
[2021-10-07] MEDS ORDERED: ONDANSETRON HCL 4MG/2ML INJ IV PRN (12:45)
[2021-10-07] MEDS ORDERED: DOCUSATE SODIUM 100MG CAPSULE PO PRN (12:45)
[2021-10-07] MEDS ORDERED: GUAIFENESIN 200MG/10ML SUGAR FREE UDC PO PRN (12:45)
[2021-10-07] MEDS ORDERED: ACETAMINOPHEN 325MG TABLET PO PRN (12:45)
[2021-10-07] MEDS ORDERED: DIPHENHYDRAMINE 50MG/ML VIAL IV PRN (12:45)
[2021-10-07] MEDS ORDERED: PIPERACILLIN/TAZOBACTAM 3.375 G in DEXTROSE 5% WATER 50 ML IV SCH (12:45)
[2021-10-07] MEDS ORDERED: DEXTROSE 50% WATER 50ML SYRINGE IV PRN (12:45)
[2021-10-07] MEDS ORDERED: POTASSIUM CHLORIDE 20MEQ TABLET SR PO NR (12:45)
[2021-10-07] MEDS ORDERED: MAGNESIUM/ALUMINUM HYDROXIDE/SIMETHICONE 30ML UDC PO PRN (12:45)
[2021-10-07] MEDS ORDERED: LORAZEPAM 0.5MG TABLET PO PRN (12:45)
[2021-10-07] MEDS ORDERED: VANCOMYCIN 1G PREMIX 200 ML IV NR ×2 (13:00→17:00)
[2021-10-07] MEDS ORDERED: NALOXONE HCL 0.4MG/ML VIAL IV PRN (13:45)
[2021-10-07 14:00] VITALS: BP_SYST 101; BP_SYST 124; BP_DIAS 68; BP_DIAS 71
[2021-10-07] MEDS ORDERED: PIPERACILLIN/TAZOBACTAM 3.375G in DEXT 5% WATER 50ML IV SCH (14:00)
[2021-10-07 16:00] VITALS: BP 125/72
[2021-10-07] MEDS: ENOXAPARIN 40MG/0.4ML SYR SUBCUT SCH (16:14)
[2021-10-07] MEDS: HYDROCODONE/ACETAMINOPHEN 5/325MG TABLET PO PRN ×2 (16:20→21:16)
[2021-10-07] MEDS: BLOOD SUGAR DIAGNOSTIC STRIP TEST SCH ×2 (16:29→21:14)
[2021-10-07] MEDS: INSULIN LISPRO 100 UNITS/ML SUBCUT SCH ×2 (17:23→21:00)
[2021-10-07] MEDS: MORPHINE SULFATE 2 MG/ML CPJ (NOT FOR IM USE) IV PRN (18:37)
[2021-10-07] MEDS: PIPERACILLIN/TAZOBACTAM 3.375G in DEXT 5% WATER 50ML IV SCH ×2 (19:01→23:19)
[2021-10-07 20:00] VITALS: BP 124/62
[2021-10-07 20:42] LABS: BASOPHILS % 0.5 % (0.0-2.0); EOSINOPHILS % 1.9 % (0.0-5.0); HEMATOCRIT. 32.1 % (36.0-48.0); HEMOGLOBIN. 10.2 g/dL (12.0-16.0); MEAN CORPUSCULAR HEMOGLOBIN 26.2 pg (28.0-32.0); MEAN CORPUSCULAR VOLUME 82.5 fL (81.0-99.0); MEAN PLATELET VOLUME 8.1 fl (7.4-10.4); MONOCYTES % 8.5 % (2.0-8.0); NEUTROPHILS % 65.1 % (40.0-76.0); PLATELET 499 x1000/uL (130-400); RED BLOOD CELL COUNT 3.88 mill/uL (4.2-5.4)
[2021-10-07 20:52] LABS: INR 1.1; PROTHROMBIN TIME 11.8 sec (9.6-11.0)
[2021-10-07 21:01] LABS: CHLORIDE 105 mEq/L (98-107)
[2021-10-07] MEDS: FAMOTIDINE 20MG TABLET PO SCH (21:14)
[2021-10-08] VITALS: BP 137/77
[2021-10-08] MEDS: MORPHINE SULFATE 2 MG/ML CPJ (NOT FOR IM USE) IV PRN ×6 (01:12→23:23)
[2021-10-08 04:00] VITALS: BP 129/62
[2021-10-08] MEDS: VANCOMYCIN 500MG PREMIX 100 ML IV SCH ×2 (04:45→20:41)
[2021-10-08] MEDS: PIPERACILLIN/TAZOBACTAM 3.375G in DEXT 5% WATER 50ML IV SCH ×3 (05:43→22:04)
[2021-10-08] MEDS: BLOOD SUGAR DIAGNOSTIC STRIP TEST SCH ×4 (06:12→20:41)
[2021-10-08] MEDS: INSULIN LISPRO 100 UNITS/ML SUBCUT SCH ×4 (06:13→20:42)
[2021-10-08 08:00] VITALS: BP 148/77
[2021-10-08] MEDS ORDERED: MUPIROCIN 2% OINT 22GM NS SCH (09:00)
[2021-10-08] MEDS: MUPIROCIN 2% OINT 22GM TOP SCH (09:21)
[2021-10-08 12:00] VITALS: BP 148/72
[2021-10-08] MEDS ORDERED: POTASSIUM CHLORIDE 20MEQ TABLET SR PO SCH (12:00)
[2021-10-08 12:19] LABS: BASOPHILS % 0.4 % (0.0-2.0); EOSINOPHILS % 1.6 % (0.0-5.0); HEMATOCRIT. 29.4 % (36.0-48.0); HEMOGLOBIN. 9.6 g/dL (12.0-16.0); LYMPHOCYTES % 23.6 % (20.0-50.0); MEAN CORPUSCULAR HEMOGLOBIN 26.6 pg (28.0-32.0); MEAN CORPUSCULAR VOLUME 81.1 fL (81.0-99.0); MEAN PLATELET VOLUME 8.1 fl (7.4-10.4); MONOCYTES % 11.3 % (2.0-8.0); NEUTROPHILS % 63.1 % (40.0-76.0); PLATELET 415 x1000/uL (130-400); RED BLOOD CELL COUNT 3.62 mill/uL (4.2-5.4); RED CELL DISTRIBUTION WIDTH 21.2 % (11.6-14.6)
[2021-10-08 12:28] LABS: CHLORIDE 106 mEq/L (98-107)
[2021-10-08] MEDS ORDERED: LIDOCAINE HCL 1% 20ML VIAL (Pyxis) INJ ONE (13:09)
[2021-10-08] MEDS: ENOXAPARIN 40MG/0.4ML SYR SUBCUT SCH (14:13)
[2021-10-08] MEDS ORDERED: MUPI15CR11 TP (15:34)
[2021-10-08 16:00] VITALS: BP 142/78
[2021-10-08] MEDS ORDERED: POTASSIUM CHLORIDE 20MEQ TABLET SR PO NR (16:00)
[2021-10-08 16:26] LABS: BG BASE EXCESS 4.3 mmol/L (-2.0-2.0); BG CARBOXYHEMOGLOBIN 0.1 % (0.5-1.5); BG DEOXYHEMOGLOBIN 6.8 % (0.0-5.0); BG HCO3 ACT 28.3 mmol/L (22.0-26.0); BG METHEMOGLOBIN 0.3 % (0.0-1.5); BG OXYGEN SATURATION 93.2 % (92.0-98.5); BG OXYHEMOGLOBIN 92.8 % (94.0-97.0); BG PH 7.468 (7.350-7.450); BG PO2 69.9 mmHg (75.0-100.0); BG SAMPLE SITE RIGHT BRACHIAL; BG VENT MODE ROOM AIR
[2021-10-08 20:00] VITALS: BP 121/59
[2021-10-08] MEDS: FAMOTIDINE 20MG TABLET PO SCH (20:41)
[2021-10-08] MEDS ORDERED: IOHEXOL-350 100 ML BOTTLE ONE ×2 (21:32→23:26)
[2021-10-09] VITALS: BP 137/72
[2021-10-09 04:00] VITALS: BP 127/79
[2021-10-09] MEDS: MORPHINE SULFATE 2 MG/ML CPJ (NOT FOR IM USE) IV PRN ×3 (04:21→12:43)
[2021-10-09] MEDS: PIPERACILLIN/TAZOBACTAM 3.375G in DEXT 5% WATER 50ML IV SCH ×2 (05:11→14:00)
[2021-10-09] MEDS: BLOOD SUGAR DIAGNOSTIC STRIP TEST SCH ×2 (06:10→12:10)
[2021-10-09] MEDS: INSULIN LISPRO 100 UNITS/ML SUBCUT SCH ×2 (06:10→12:10)
[2021-10-09 08:00] VITALS: BP 127/68
[2021-10-09] MEDS: MUPIROCIN 2% OINT 22GM TOP SCH (08:21)
[2021-10-09] MEDS: VANCOMYCIN 500MG PREMIX 100 ML IV SCH (09:57)
[2021-10-09 12:14] LABS: CHLORIDE 102 mEq/L (98-107)
[2021-10-09 12:17] LABS: BASOPHILS % 0.4 % (0.0-2.0); EOSINOPHILS % 1.5 % (0.0-5.0); HEMATOCRIT. 28.2 % (36.0-48.0); HEMOGLOBIN. 9.2 g/dL (12.0-16.0); LYMPHOCYTES % 20.6 % (20.0-50.0); MEAN CORPUSCULAR HEMOGLOBIN 26.5 pg (28.0-32.0); MEAN CORPUSCULAR VOLUME 81.5 fL (81.0-99.0); MEAN PLATELET VOLUME 8.1 fl (7.4-10.4); MONOCYTES % 10.5 % (2.0-8.0); PLATELET 421 x1000/uL (130-400); RED BLOOD CELL COUNT 3.46 mill/uL (4.2-5.4); RED CELL DISTRIBUTION WIDTH 20.8 % (11.6-14.6)
[2021-10-09] MEDS ORDERED: POTASSIUM CHLORIDE 20MEQ TABLET SR PO SCH (12:30)
[2021-10-09] MEDS ORDERED: HYDR-4001 MT (13:04)
[2021-10-09 13:23] VITALS: BP 125/84
[2021-10-09] MEDS: ENOXAPARIN 40MG/0.4ML SYR SUBCUT SCH (15:00)
[2021-10-09] MEDS ORDERED: LEVO500T89 MT (15:43)
[2021-10-09] MEDS ORDERED: SULF1TAB48 MT (15:43)
[2021-10-09] MEDS ORDERED: VANCOMYCIN 750 MG in DEXT 5% WATER 250 ML IV SCH (21:00)
== END 2021-10-09 15:54 | disposition home or self-care (01) | DRG 299 ==
LOC: ER 15:22 → MICUSO 10-07 01:36 → 7WST 10-07 13:38
PROVIDERS: ADMIT Internal Medicine; ATTEND Internal Medicine
PROC: 02HV33Z Insertion of Infusion Device into Superior Vena Cava, Percutaneous Approach (ICD-10-PCS; principal; 2021-10-08)
PROC: B548ZZA Ultrasonography of Superior Vena Cava, Guidance (ICD-10-PCS; 2021-10-08)
DX: E11.52 Type 2 diabetes mellitus with diabetic peripheral angiopathy with gangrene (principal); U07.1 COVID-19; T82.868A Thrombosis due to vascular prosthetic devices, implants and grafts, initial encounter; I96 Gangrene, not elsewhere classified; I42.9 Cardiomyopathy, unspecified; N39.0 Urinary tract infection, site not specified; S90.821A Blister (nonthermal), right foot, initial encounter; D64.9 Anemia, unspecified; E87.6 Hypokalemia; I10 Essential (primary) hypertension; E11.40 Type 2 diabetes mellitus with diabetic neuropathy, unspecified; E11.621 Type 2 diabetes mellitus with foot ulcer; F17.210 Nicotine dependence, cigarettes, uncomplicated; J44.9 Chronic obstructive pulmonary disease, unspecified; R74.01 Elevation of levels of liver transaminase levels; X58.XXXA Exposure to other specified factors, initial encounter; Y83.8 Other surgical procedures as the cause of abnormal reaction of the patient, or of later complication, without mention of misadventure at the time of the procedure; L97.519 Non-pressure chronic ulcer of other part of right foot with unspecified severity; Z79.02 Long term (current) use of antithrombotics/antiplatelets; Z79.4 Long term (current) use of insulin; Z79.84 Long term (current) use of oral hypoglycemic drugs; Z79.899 Other long term (current) drug therapy; Z86.73 Personal history of transient ischemic attack (TIA), and cerebral infarction without residual deficits; Z87.11 Personal history of peptic ulcer disease; Z89.411 Acquired absence of right great toe; Z89.421 Acquired absence of other right toe(s); Z79.82 Long term (current) use of aspirin; Z86.718 Personal history of other venous thrombosis and embolism; Y93.89 Activity, other specified; Y92.89 Other specified places as the place of occurrence of the external cause; Y99.8 Other external cause status
CPT/HCPCS: 36415; 36600; 71045; 75635; 76937; 80048; 80053; 80202; 81003; 82375; 82805; 82962; 83036; 84443; 85025; 86850; 86900; 87070; 87077; 87186; 87426; 93005; 93970; 99285; C1725; J1650; J2270; J2543; J3370; J3490; J7040; J7060; Q9967

== ENCOUNTER 2021-10-20 09:16 | Inpatient (IN) | payer OTHER, MEDICAID ==
[2021-10-20] VITALS (12 sets, daily range): BP systolic 69–150; BP diastolic 39–92
[~2021-10-20] VITALS: Ht 162.6 cm; Wt 58.1 kg
[~2021-10-20 09:16] MED LIST changes: -CEPH500C2 MT; +LEVO500T89 MT; +MUPI15CR11 TP; +SULF1TAB48 MT
[2021-10-20] MEDS ORDERED: DEXTROSE 50% WATER 50ML SYRINGE IV ONE ×4 (09:44→17:15)
[2021-10-20] MEDS ORDERED: SODIUM CHLORIDE 0.9% 1,000 ML IV ONE (09:45)
[2021-10-20] MEDS ORDERED: DEXT 10% WATER 1,000 ML IV ONE (10:15)
[2021-10-20 10:40] LABS: HEMATOCRIT. 26.8 % (36.0-48.0); HEMOGLOBIN. 8.1 g/dL (12.0-16.0); MEAN CORPUSCULAR HEMOGLOBIN 26.4 pg (28.0-32.0); MEAN CORPUSCULAR VOLUME 87.1 fL (81.0-99.0); MEAN PLATELET VOLUME 7.9 fl (7.4-10.4); PLATELET 416 x1000/uL (130-400); RED BLOOD CELL COUNT 3.08 mill/uL (4.2-5.4); RED CELL DISTRIBUTION WIDTH 21.5 % (11.6-14.6)
[2021-10-20 10:48] LABS: CHLORIDE 97 mEq/L (98-107)
[2021-10-20] MEDS ORDERED: GLUCAGON,HUMAN RECOMBINANT 1MG/VIAL IM ONE (11:00)
[2021-10-20] MEDS ORDERED: SODIUM POLYSTYRENE SULFONATE 15 G/60 ML BOT PO ONE (11:15)
[2021-10-20] MEDS ORDERED: CALCIUM GLUCONATE 1,000 MG in DEXT 5% WATER 100 ML IV ONE (11:15)
[2021-10-20] MEDS ORDERED: SODIUM BICARBONATE 8.4% 1 MEQ/ML 50ML SYR IV ONE ×3 (11:15→17:15)
[2021-10-20 11:17] LABS: PLATELET ESTIMATE SLIGHTLY INCREASED
[2021-10-20] MEDS ORDERED: CALCIUM GLUCONATE 1GM PREMIX 50 ML IV NR (11:30)
[2021-10-20] MEDS: ALBUTEROL (0.083%) 2.5MG/3ML NEB HHN SCH ×2 (11:30→13:50)
[2021-10-20] MEDS ORDERED: NA PHOS,M-B/NA PHOS,DI-BA ENEMA 118ML PR PRN (12:30)
[2021-10-20] MEDS ORDERED: MAGNESIUM/ALUMINUM HYDROXIDE/SIMETHICONE 30ML UDC PO PRN (12:30)
[2021-10-20] MEDS ORDERED: DEXTROSE 50% WATER 50ML SYRINGE IV PRN ×3 (12:30→23:45)
[2021-10-20] MEDS ORDERED: CLONIDINE 0.1MG TABLET PO PRN (12:30)
[2021-10-20] MEDS ORDERED: ACETAMINOPHEN 650MG SUPP PR PRN (12:30)
[2021-10-20] MEDS ORDERED: ONDANSETRON HCL 4MG/2ML INJ IV PRN (12:30)
[2021-10-20] MEDS ORDERED: HYDROCODONE/ACETAMINOPHEN 5/325MG TABLET PO PRN (12:30)
[2021-10-20] MEDS ORDERED: ACETAMINOPHEN 650MG/20.3ML UDC GT PRN (12:30)
[2021-10-20] MEDS ORDERED: IPRATROPIUM/ALBUTEROL 0.5-3(2.5)MG/3ML NEB NEB PRN (12:30)
[2021-10-20] MEDS ORDERED: LORAZEPAM 0.5MG TABLET PO PRN (12:30)
[2021-10-20] MEDS ORDERED: DIPHENHYDRAMINE 50MG/ML VIAL IV PRN (12:30)
[2021-10-20] MEDS ORDERED: GUAIFENESIN 200MG/10ML SUGAR FREE UDC PO PRN (12:30)
[2021-10-20] MEDS ORDERED: DOCUSATE SODIUM 100MG CAPSULE PO PRN (12:30)
[2021-10-20] MEDS ORDERED: DEXT 5%/0.9% NACL 1,000 ML IV SCH (12:45)
[2021-10-20] MEDS ORDERED: VANCOMYCIN 1GM PMX (XELLIA) 200 ML IV NR (13:00)
[2021-10-20 13:14] LABS: BG BASE EXCESS -18.5 mmol/L (-2.0-2.0); BG CARBOXYHEMOGLOBIN 0.3 % (0.5-1.5); BG DEOXYHEMOGLOBIN 2.4 % (0.0-5.0); BG FRACTION INSPIRED OXYGEN 21; BG HCO3 ACT 5.9 mmol/L (22.0-26.0); BG METHEMOGLOBIN 0.3 % (0.0-1.5); BG OXYGEN SATURATION 97.6 % (92.0-98.5); BG PCO2 12.6 mmHg (35.0-45.0); BG PH 7.287 (7.350-7.450); BG PO2 120.2 mmHg (75.0-100.0); BG SAMPLE SITE RIGHT BRACHIAL; BG TOTAL HEMOGLOBIN 9.7 g/dL (12.0-18.0); BG VENT MODE ROOM AIR
[2021-10-20] MEDS: BLOOD SUGAR DIAGNOSTIC STRIP TEST SCH ×4 (13:34→21:25)
[2021-10-20] MEDS ORDERED: PIPERACILLIN/TAZOBACTAM 3.375 G in DEXTROSE 5% WATER 50 ML IV SCH (14:00)
[2021-10-20 14:03] LABS: CREATINE KINASE MB FRACTION 84.5 ng/mL (0.5-3.6)
[2021-10-20] MEDS ORDERED: IPRATROPIUM/ALBUTEROL 0.5-3(2.5)MG/3ML NEB HHN SCH (17:15)
[2021-10-20] MEDS ORDERED: INSULIN REGULAR (HUMULIN R) 300UNITS/3ML VIAL IV ONE (17:15)
[2021-10-20] MEDS ORDERED: CALCIUM CHLORIDE 1GM/10ML SYR IV ONE (17:15)
[2021-10-20] MEDS ORDERED: SODIUM BICARBONATE IV SCH (17:30)
[2021-10-20] MEDS ORDERED: NACL IV SCH (17:30)
[2021-10-20] MEDS ORDERED: DEXT IV SCH (17:30)
[2021-10-20] MEDS ORDERED: SODIUM BICARBONATE 100 MEQ in DEXTROSE 5% WATER 1,000 ML IV SCH (18:00)
[2021-10-20] MEDS ORDERED: DEXT 10% WATER 1,000 ML IV SCH (18:00)
[2021-10-20] MEDS ORDERED: SODIUM BICARBONATE 8.4% 1 MEQ/ML 50ML SYR IV NR (18:00)
[2021-10-20] MEDS ORDERED: NOREPINEPHRINE 8 MG in DEXT 5% WATER 242 ML IV PRN ×2 (18:15→18:30)
[2021-10-20] MEDS ORDERED: ROCURONIUM BROMIDE 10MG/ML VIAL 5ML IV ONE (18:15)
[2021-10-20] MEDS ORDERED: PROPOFOL 10MG/ML 100ML 100 ML IV ONE (18:15)
[2021-10-20] MEDS ORDERED: ETOMIDATE 2MG/ML 10ML VIAL IV ONE (18:15)
[2021-10-20 19:07] LABS: CREATINE KINASE MB FRACTION 75.4 ng/mL (0.5-3.6)
[2021-10-20 20:00] LABS: CHLORIDE 92 mEq/L (98-107)
[2021-10-20 20:41] LABS: BG BASE EXCESS -17.6 mmol/L (-2.0-2.0); BG CARBOXYHEMOGLOBIN 0.3 % (0.5-1.5); BG DEOXYHEMOGLOBIN 0.2 % (0.0-5.0); BG FRACTION INSPIRED OXYGEN 100; BG HCO3 ACT 10.1 mmol/L (22.0-26.0); BG METHEMOGLOBIN 0.5 % (0.0-1.5); BG OXYGEN SATURATION 99.8 % (92.0-98.5); BG PCO2 30.8 mmHg (35.0-45.0); BG PH 7.132 (7.350-7.450); BG PO2 454.1 mmHg (75.0-100.0); BG SAMPLE SITE RIGHT FEMORAL; BG TOTAL HEMOGLOBIN 7.7 g/dL (12.0-18.0); BG TOTAL RESPIRATORY RATE 12 b/min; BG VENT MODE VENT - AC
[2021-10-20] MEDS ORDERED: SODIUM BICARBONATE 8.4% 1 MEQ/ML 50ML SYR IV SCH ×2 (21:30)
[2021-10-20] MEDS ORDERED: NALOXONE HCL 0.4MG/ML VIAL IV PRN (22:00)
[2021-10-20] MEDS ORDERED: SODIUM BICARBONATE 150 MEQ in DEXT 10% WATER 1,000 ML IV SCH (23:00)
[2021-10-20 23:29] LABS: CREATINE KINASE MB FRACTION 88.2 ng/mL (0.5-3.6)
[2021-10-21] VITALS (80 sets, daily range): BP systolic 38–154; BP diastolic 19–105
[2021-10-21] MEDS: BLOOD SUGAR DIAGNOSTIC STRIP TEST SCH ×14 (00:15→20:57)
[2021-10-21] MEDS ORDERED: INSULIN LISPRO 100 UNITS/ML SUBCUT SCH ×3 (00:15)
[2021-10-21] MEDS ORDERED: SODIUM BICARBONATE IV SCH (01:00)
[2021-10-21] MEDS ORDERED: DEXT 5% IV SCH (01:00)
[2021-10-21] MEDS ORDERED: WATER IV SCH (01:00)
[2021-10-21] MEDS ORDERED: DEXTROSE 50% WATER 50ML SYRINGE IV PRN ×2 (04:45)
[2021-10-21] MEDS ORDERED: INSULIN REGULAR (DRIP) 100 UNITS in SODIUM CHLORIDE 0.9% 99 ML IV SCH (05:00)
[2021-10-21 06:07] LABS: BASOPHILS % 0.3 % (0.0-2.0); EOSINOPHILS % 0.2 % (0.0-5.0); HEMATOCRIT. 29.2 % (36.0-48.0); HEMOGLOBIN. 8.4 g/dL (12.0-16.0); LYMPHOCYTES % 7.6 % (20.0-50.0); MEAN CORPUSCULAR HEMOGLOBIN 26.2 pg (28.0-32.0); MEAN CORPUSCULAR VOLUME 90.8 fL (81.0-99.0); MEAN PLATELET VOLUME 7.9 fl (7.4-10.4); MONOCYTES % 2.5 % (2.0-8.0); NEUTROPHILS % 89.4 % (40.0-76.0); PLATELET 471 x1000/uL (130-400); RED BLOOD CELL COUNT 3.22 mill/uL (4.2-5.4); RED CELL DISTRIBUTION WIDTH 22.7 % (11.6-14.6)
[2021-10-21 06:18] LABS: CHLORIDE 91 mEq/L (98-107)
[2021-10-21] MEDS: SODIUM BICARBONATE 150 MEQ in SODIUM CHLORIDE 0.45% 1,000 ML IV SCH ×2 (06:21→17:45)
[2021-10-21] MEDS: INSULIN REGULAR 100U/100ML PMX 100 ML IV PRN ×3 (06:22→17:55)
[2021-10-21] MEDS ORDERED: LIDOCAINE HCL 1% 20ML VIAL (Pyxis) INJ ONE (07:33)
[2021-10-21] MEDS: PIPERACILLIN/TAZOBACTAM 3.375 G in DEXTROSE 5% WATER 50 ML IV SCH ×2 (08:49→21:08)
[2021-10-21] MEDS ORDERED: FAMOTIDINE 20MG/2ML VIAL IV SCH (09:00)
[2021-10-21] MEDS ORDERED: PHENYLEPHRINE 100 MG in DEXT 5% WATER 240 ML IV PRN (12:00)
[2021-10-21 12:14] LABS: BG CARBOXYHEMOGLOBIN 0.3 % (0.5-1.5); BG DEOXYHEMOGLOBIN 6.5 % (0.0-5.0); BG FRACTION INSPIRED OXYGEN 50; BG HCO3 ACT 7.7 mmol/L (22.0-26.0); BG METHEMOGLOBIN 0.7 % (0.0-1.5); BG OXYGEN SATURATION 93.4 % (92.0-98.5); BG OXYHEMOGLOBIN 92.5 % (94.0-97.0); BG PCO2 31.3 mmHg (35.0-45.0); BG PH 7.008 (7.350-7.450); BG PO2 99.1 mmHg (75.0-100.0); BG SAMPLE SITE RIGHT BRACHIAL; BG TOTAL HEMOGLOBIN 9.2 g/dL (12.0-18.0); BG TOTAL RESPIRATORY RATE 15 b/min; BG VENT MODE VENT - AC
[2021-10-21] MEDS ORDERED: SODIUM BICARBONATE 8.4% 1 MEQ/ML 50ML SYR IV NR ×4 (12:55→20:30)
[2021-10-21 13:01] LABS: INR 1.6; PROTHROMBIN TIME 16.7 sec (9.6-11.0)
[2021-10-21 13:46] LABS: T4 FREE 0.45 ng/dL (0.76-1.46)
[2021-10-21 14:06] LABS: PHOSPHORUS 8.8 mg/dL (2.5-4.9)
[2021-10-21 15:21] LABS: BG BASE EXCESS -13.3 mmol/L (-2.0-2.0); BG CARBOXYHEMOGLOBIN 0.5 % (0.5-1.5); BG DEOXYHEMOGLOBIN 3.2 % (0.0-5.0); BG FRACTION INSPIRED OXYGEN 50; BG METHEMOGLOBIN 0.9 % (0.0-1.5); BG OXYGEN SATURATION 96.8 % (92.0-98.5); BG OXYHEMOGLOBIN 95.4 % (94.0-97.0); BG PCO2 38.6 mmHg (35.0-45.0); BG PH 7.177 (7.350-7.450); BG PO2 111.3 mmHg (75.0-100.0); BG SAMPLE SITE LEFT BRACHIAL; BG TOTAL RESPIRATORY RATE 15 b/min; BG VENT MODE VENT - AC
[2021-10-21] MEDS: NOREPINEPHRINE 32 MG in DEXT 5% WATER 218 ML IV PRN (17:46)
[2021-10-21] MEDS: LACTULOSE 300 ML in WATER FOR IRRIGATION,STERILE 700 ML IR SCH (17:47)
[2021-10-21] MEDS: PANTOPRAZOLE SODIUM 40 MG/VIAL IV SCH (17:47)
[2021-10-21 19:29] LABS: BG BASE EXCESS -18.5 mmol/L (-2.0-2.0); BG CARBOXYHEMOGLOBIN 0.3 % (0.5-1.5); BG DEOXYHEMOGLOBIN 4.7 % (0.0-5.0); BG FRACTION INSPIRED OXYGEN 500; BG HCO3 ACT 9.5 mmol/L (22.0-26.0); BG METHEMOGLOBIN 0.9 % (0.0-1.5); BG OXYGEN SATURATION 95.2 % (92.0-98.5); BG OXYHEMOGLOBIN 94.1 % (94.0-97.0); BG PCO2 31.4 mmHg (35.0-45.0); BG PH 7.099 (7.350-7.450); BG PO2 104.6 mmHg (75.0-100.0); BG SAMPLE SITE RIGHT BRACHIAL; BG TOTAL HEMOGLOBIN 5.9 g/dL (12.0-18.0); BG VENT MODE VENT - AC
[2021-10-21] MEDS: DOPAMINE 800MG PREMIX (DOUBLE) 250 ML IV PRN (19:38)
[2021-10-21 21:32] LABS: BASOPHILS % 0.4 % (0.0-2.0); EOSINOPHILS % 0.2 % (0.0-5.0); HEMATOCRIT. 21.1 % (36.0-48.0); LYMPHOCYTES % 12.5 % (20.0-50.0); MEAN CORPUSCULAR HEMOGLOBIN 26.6 pg (28.0-32.0); MEAN CORPUSCULAR VOLUME 94.1 fL (81.0-99.0); MEAN PLATELET VOLUME 7.3 fl (7.4-10.4); MONOCYTES % 8.6 % (2.0-8.0); NEUTROPHILS % 78.3 % (40.0-76.0); PLATELET 235 x1000/uL (130-400); RED BLOOD CELL COUNT 2.25 mill/uL (4.2-5.4); RED CELL DISTRIBUTION WIDTH 21.7 % (11.6-14.6)
[2021-10-21] MEDS ORDERED: SODIUM BICARBONATE 150 MEQ in DEXTROSE 5% WATER 1,000 ML IV SCH (23:00)
[2021-10-21] MEDS ORDERED: VASOPRESSIN 20 UNIT in SODIUM CHLORIDE 0.9% 99 ML IV PRN (23:00)
[2021-10-22] VITALS (17 sets, daily range): BP systolic 19–63; BP diastolic 12–43
[2021-10-22] MEDS ORDERED: SODIUM BICARBONATE 150 MEQ in DEXTROSE 5% WATER 1,000 ML IV SCH (00:30)
[2021-10-22] MEDS: SODIUM BICARBONATE 8.4% 1 MEQ/ML 50ML SYR IV SCH ×2 (01:50→05:39)
[2021-10-22] MEDS: NOREPINEPHRINE 32 MG in DEXT 5% WATER 218 ML IV PRN (02:18)
[2021-10-22] MEDS: BLOOD SUGAR DIAGNOSTIC STRIP TEST SCH ×3 (04:00→08:27)
[2021-10-22] MEDS ORDERED: SODIUM BICARBONATE 8.4% 1 MEQ/ML 50ML SYR IV NR ×2 (05:15→09:30)
[2021-10-22] MEDS: LACTULOSE 300 ML in WATER FOR IRRIGATION,STERILE 700 ML IR SCH (05:36)
[2021-10-22] MEDS: DOPAMINE 800MG PREMIX (DOUBLE) 250 ML IV PRN (07:07)
[2021-10-22 08:09] LABS: BG BASE EXCESS -0.4 mmol/L (-2.0-2.0); BG CARBOXYHEMOGLOBIN 0.3 % (0.5-1.5); BG DEOXYHEMOGLOBIN 8.5 % (0.0-5.0); BG HCO3 ACT 26.7 mmol/L (22.0-26.0); BG METHEMOGLOBIN 0.3 % (0.0-1.5); BG OXYGEN SATURATION 91.4 % (92.0-98.5); BG OXYHEMOGLOBIN 90.9 % (94.0-97.0); BG PCO2 58.3 mmHg (35.0-45.0); BG PH 7.278 (7.350-7.450); BG PO2 68.7 mmHg (75.0-100.0); BG SAMPLE SITE RIGHT BRACHIAL; BG TOTAL HEMOGLOBIN 8.1 g/dL (12.0-18.0); BG VENT MODE VENT - AC
[2021-10-22] MEDS: PANTOPRAZOLE SODIUM 40 MG/VIAL IV SCH (08:28)
[2021-10-22] MEDS: PIPERACILLIN/TAZOBACTAM 3.375 G in DEXTROSE 5% WATER 50 ML IV SCH (08:28)
[2021-10-22 08:41] LABS: HEMOGLOBIN. 8.4 g/dL (12.0-16.0); MEAN CORPUSCULAR VOLUME 96.5 fL (81.0-99.0); MEAN PLATELET VOLUME 7.4 fl (7.4-10.4); PLATELET 85 x1000/uL (130-400); RED CELL DISTRIBUTION WIDTH 17.1 % (11.6-14.6)
[2021-10-22 08:52] LABS: CHLORIDE 83 mEq/L (98-107)
[2021-10-22 08:59] LABS: TOTAL IRON BINDING CAPACITY 136 ug/dL (250-450)
[2021-10-22 09:11] LABS: FOLIC ACID (FOLATE) SERUM >20 ng/mL ng/mL (>5.38)
[2021-10-22 09:23] LABS: VITAMIN B12 SERUM >2000 pg/mL pg/mL (211-911)
[2021-10-22] MEDS ORDERED: DEXTROSE 50% WATER 50ML SYRINGE IV NR (09:30)
[2021-10-22] MEDS ORDERED: SODIUM POLYSTYRENE SULFONATE 15 G/60 ML BOT PO NR (09:30)
[2021-10-22] MEDS ORDERED: INSULIN REGULAR (HUMULIN R) 300UNITS/3ML VIAL IV NR (09:30)
[2021-10-22] MEDS ORDERED: CALCIUM CHLORIDE 1GM/10ML SYR IV NR (09:30)
[2021-10-22] MEDS ORDERED: VANCOMYCIN 750MG PREMIX 150 ML IV SCH (11:00)
[2021-10-22 13:05] LABS: HEPATITIS B SURFACE ANTIGEN NEGATIVE
[2021-10-22 14:59] LABS: FERRITIN > 1650 ng/mL (10-291)
[2021-10-22] MEDS ORDERED: SODIUM BICARBONATE 8.4% 1 MEQ/ML 50ML SYR IV ONE (15:05)
[2021-10-22] MEDS ORDERED: DEXTROSE 50% WATER 50ML SYRINGE IV ONE (15:05)
[2021-10-22] MEDS ORDERED: EPINEPHRINE 0.1MG/ML (1:10,000) 10ML SYR ONE (15:05)
[2021-10-22] MEDS ORDERED: CALCIUM CHLORIDE 1GM/10ML SYR IV ONE (15:05)
[2021-10-22 16:19] LABS: NUCLEATED RED BLOOD CELLS 18 /100 WBC; PLATELET ESTIMATE DECREASED
== END 2021-10-22 11:00 | DRG 871 ==
LOC: ER 09:33 → MICUSO 11:41 → ENRESERV 19:43
PROVIDERS: ADMIT Internal Medicine; ATTEND Internal Medicine
PROC: 5A1945Z Respiratory Ventilation, 24-96 Consecutive Hours (ICD-10-PCS; principal; 2021-10-20)
PROC: 06HY33Z Insertion of Infusion Device into Lower Vein, Percutaneous Approach (ICD-10-PCS; 2021-10-20)
PROC: B54CZZA Ultrasonography of Left Lower Extremity Veins, Guidance (ICD-10-PCS; 2021-10-20)
PROC: 0BH17EZ Insertion of Endotracheal Airway into Trachea, Via Natural or Artificial Opening (ICD-10-PCS; 2021-10-20)
PROC: 05HY33Z Insertion of Infusion Device into Upper Vein, Percutaneous Approach (ICD-10-PCS; 2021-10-21)
PROC: 30233N1 Transfusion of Nonautologous Red Blood Cells into Peripheral Vein, Percutaneous Approach (ICD-10-PCS; 2021-10-22)
DX: A41.9 Sepsis, unspecified organism (principal); J96.01 Acute respiratory failure with hypoxia; E11.10 Type 2 diabetes mellitus with ketoacidosis without coma; N17.0 Acute kidney failure with tubular necrosis; I62.00 Nontraumatic subdural hemorrhage, unspecified; K85.90 Acute pancreatitis without necrosis or infection, unspecified; G92.8 Other toxic encephalopathy; D68.9 Coagulation defect, unspecified; E11.52 Type 2 diabetes mellitus with diabetic peripheral angiopathy with gangrene; E46 Unspecified protein-calorie malnutrition; M86.9 Osteomyelitis, unspecified; I42.9 Cardiomyopathy, unspecified; E72.20 Disorder of urea cycle metabolism, unspecified; K31.1 Adult hypertrophic pyloric stenosis; E87.1 Hypo-osmolality and hyponatremia; I70.261 Atherosclerosis of native arteries of extremities with gangrene, right leg; D64.9 Anemia, unspecified; E87.5 Hyperkalemia; I25.5 Ischemic cardiomyopathy; I25.10 Atherosclerotic heart disease of native coronary artery without angina pectoris; E11.649 Type 2 diabetes mellitus with hypoglycemia without coma; R00.1 Bradycardia, unspecified; R74.01 Elevation of levels of liver transaminase levels; F17.200 Nicotine dependence, unspecified, uncomplicated; I34.0 Nonrheumatic mitral (valve) insufficiency; I36.1 Nonrheumatic tricuspid (valve) insufficiency; R65.20 Severe sepsis without septic shock; E11.621 Type 2 diabetes mellitus with foot ulcer; J44.9 Chronic obstructive pulmonary disease, unspecified; Z20.822 Contact with and (suspected) exposure to COVID-19; K44.9 Diaphragmatic hernia without obstruction or gangrene; E11.69 Type 2 diabetes mellitus with other specified complication; I11.0 Hypertensive heart disease with heart failure; I50.9 Heart failure, unspecified; L97.519 Non-pressure chronic ulcer of other part of right foot with unspecified severity; Z79.899 Other long term (current) drug therapy; Z79.84 Long term (current) use of oral hypoglycemic drugs; Z79.82 Long term (current) use of aspirin; Z86.73 Personal history of transient ischemic attack (TIA), and cerebral infarction without residual deficits; Z87.11 Personal history of peptic ulcer disease; Z86.16 Personal history of COVID-19; Z79.4 Long term (current) use of insulin; I25.2 Old myocardial infarction; Z79.02 Long term (current) use of antithrombotics/antiplatelets; Z68.22 Body mass index [BMI] 22.0-22.9, adult
CPT/HCPCS: 36415; 36600; 70551; 71045; 71250; 73700; 74018; 74176; 76700; 76937; 80048; 80053; 80061; 80076; 80202; 82140; 82375; 82550; 82553; 82607; 82728; 82746; 82805; 82962; 83540; 83550; 83605; 83735; 84100; 84132; 84439; 84443; 84481; 84484; 85025; 85044; 85651; 86705; 86709; 86803; 86850; 86900; 86920; 87070; 87106; 87340; 87426; 93005; 93306; 93923; 93970; 94002; 94640; 99291; C1725; C9113; J0610; J1265; J1610; J1815; J2370; J2543; J2704; J3370; J3490; J7030; J7040; J7042; J7050; J7060; J7070; P9016; A4315